=== PATIENT | female | born 1970 | race Caucasian/White ===

== ENCOUNTER 2017-05-12 09:48 | Emergency (ER) | payer BC, SELFPAY | END 2017-05-12 10:57 | disposition home or self-care (01) | PROVIDERS: Emergency Provider Nurse Practitioner; Family Provider Family Medicine; Visit Provider Nurse Practitioner | DX: J09.X2 Influenza due to identified novel influenza A virus with other respiratory manifestations (principal) | CPT/HCPCS: 87804; 87880; 99201 ==

== ENCOUNTER → 2018-07-08 15:18 | Outpatient (CLI) | payer BC, SELFPAY ==
--- NOTE | 2018-07-08 15:45 | XR_ITS ---
XR clavicle RT HISTORY: ITS.REASON: RT STERNOCLAVICULAR PAIN ORDERING PHYSICIAN: Buddy Grayson MD PATIENT AGE: 47 years COMPARISON: None FINDINGS: No fracture or dislocation. No lytic or blastic change. There is normal mineralization.. The joint spaces are well-preserved. No significant degenerative/arthritic changes. No erosive changes evident. The sternoclavicular joint is not well demonstrated on the regular clavicular films.. CT of the sternoclavicular joint may be of further value if clinically warranted. IMPRESSION: Negative, no acute finding
== END ==
PROVIDERS: PCP Family Medicine; Visit Provider Family Medicine
DX: M25.511 Pain in right shoulder (principal)
CPT/HCPCS: 73000

== ENCOUNTER → 2018-07-30 14:52 | Outpatient (CLI) | payer BC, SELFPAY ==
--- NOTE | 2018-07-30 14:57 | XR_ITS ---
XR AC joint RT CLINICAL INDICATION: ITS.REASON: AC joint pain ORDERING PHYSICIAN: Alla Davis MD PATIENT AGE: 47 years Comparison: 07/08/2018 FINDINGS: A Zanca view of the right shoulder performed. The acromioclavicular joint has an unremarkable appearance. No subacromial stenosis or other significant anomalies. IMPRESSION: Negative right AC joint
--- NOTE | 2018-07-30 14:57 | XR_ITS ---
XR sternoclavicular joint BI CLINICAL INDICATION: ITS.REASON: SC joint pain ORDERING PHYSICIAN: Alla Davis MD PATIENT AGE: 47 years Comparison: None FINDINGS: AP view is obtained of the sternoclavicular joints. The medial head of the right clavicle is slightly higher than the left side however the patient does appear slightly tilted which may contribute to this finding. No fracture apparent. The medial aspect of both clavicles have an unremarkable appearance. IMPRESSION: There may be some minimal superior subluxation of the medial head of the right clavicle. Consider CT for confirmation
== END ==
PROVIDERS: PCP Family Medicine; Visit Provider Orthopaedic Surgery
DX: M25.511 Pain in right shoulder (principal)
CPT/HCPCS: 71130; 73050

== ENCOUNTER → 2018-08-27 07:50 | Outpatient (CLI) | payer BC, SELFPAY ==
[2018-08-27 09:43] LABS: Alanine Aminotransferase 28 U/L (12-78); Albumin Level 3.5 gm/dL (3.4-5.0); Albumin/Globulin Ratio 1.1 (1.1-1.8); Alkaline Phosphatase 74 U/L (46-116); Anion Gap 13.1 mEq/L (5-15); Aspartate Amino Transferase 16 U/L (15-37); Bilirubin,Total 0.3 mg/dL (0.2-1.0); Blood Urea Nitrogen 17 mg/dL (7-18); Calcium 9.3 mg/dL (8.5-10.1); Carbon Dioxide 27 mmol/L (21.0-32.0); Chloride 106 mmol/L (98-107); Chol/HDL Ratio 3.3 (1-3.5); Cholesterol 229 mg/dL (140-200); Creatinine,Serum 1.06 mg/dL (0.55-1.02); Estimated Glomerular Filt Rate 55 ml/min (>60); GFR (African American) 67 ML/MIN (>60); Globulin 3.1 gm/dl (1.3-3.2); Glucose 75 mg/dL (74-106); HDL Cholesterol 69 mg/dL (29-89); LDL Cholesterol 126 mg/dL (0-130); Potassium 4.1 mmoL/L (3.5-5.1); Sodium 142 mmol/L (136-145); Total Protein,Serum 6.6 gm/dL (6.4-8.2); Triglycerides 169 mg/dL (30-200); Uric Acid 7.6 mg/dL (2.6-7.2); VLDL Cholesterol 34 mg/dL (0-40)
== END ==
PROVIDERS: Visit Provider Family Medicine
DX: I10 Essential (primary) hypertension (principal); E78.5 Hyperlipidemia, unspecified; E79.0 Hyperuricemia without signs of inflammatory arthritis and tophaceous disease
CPT/HCPCS: 36415; 80053; 80061; 84550

== ENCOUNTER 2018-09-03 08:00 | Outpatient (RCR) | payer BC, SELFPAY ==
--- NOTE | 2018-08-02 08:53 | HMH.OTOPEV ---
OT Inpatient Evaluation Rehab OT Outpatient Eval Start: 08/02/18 08:39 Freq: Status: Active Protocol: Document 08/02/18 08:39 RMARSHALL (Rec: 08/02/18 08:53 [facility] [id number] Electronically Signed By Elizabeth Hendrix OT 08/02/18 08:39 Outpatient Therapy Subjective History Subjective History Pt is a 47 year old female seen by OT for initial evaluation to Right shoulder and SC joint. Pt began having pain and swelling in her right SC joint in June, after beginning an exercises program with her upper body. Pt reports her pain refers acrost her clavicle into the AC joint. Pt does demonstrate with slight decreased AROM and strength at right shoulder. Pt will continue to be seen twice a week in order to address these deficits. Chief Complaint Pain Swelling Weakness Symptom Type Ache Dull Symptoms Relieved By Nothing Symptoms Aggravated By Physical Activity Lifting Prior Functional Limitations None Current Functional Limitations Reaching Lifting Housework Sleeping Recreation Activity Symptom Description Intermittent Activity Dependent Level of pain today (0-10) 0 Pain scale - at its best (0-10) 0 Pain scale - at its worst (0-10) 4 Shoulder/Elbow Eval Shoulder Objective Measurements Shoulder ROM Right Shoulder ROM Limitations Muscle Weakness Shoulder Abduction Active Range of 134 degrees Motion (degrees) Shoulder Flexion Active Range of Motion 125 degrees (degrees) Query Text: Shoulder External Rotation Active Range 85 degrees of Motion (degrees) Shoulder Internal Rotation Active Range 75 degrees of Motion (degrees) pain with active ROM shoulder exam right standard decreased ROM shoulder exam standard right Shoulder MMT Shoulder Abduction Strength Grade 4 Good Shoulder Extension Strength Grade 4 Good Shoulder Flexion Strength Grade 4 Good Shoulder External Rotation Strength 4 Good Grade
--- NOTE | 2018-09-03 08:49 | HMH.RHREAS ---
Rehab Reassessment Rehab OP Re-assessment Start: 09/03/18 08:27 Freq: Status: Active Protocol: Document 09/03/18 08:27 CALE (Rec: 09/03/18 08:48 RMNORAHALL [id number]) Electronically Signed By Elizabeth Hendrix OT 09/03/18 08:27 Rehab Re-assessment Subjective Subjective I'm still having aching pain. Objective Objective Notes Pt continues to be seen twice a week in order to engage in skilled OT services. Pt engages in Right shoulder AROM /AAROM/Strengthening exercises . Pt completes the following exercises. Pt also receives modalities such as e-stim, ionto, and ice to decrease pain/inflammation. UE Ergo: 5 minutes forward and 5 minutes backward Pulleys A/F: [address] Wand A/F: 10 reps, 1 set ABC's on Wall: 1 set [place] GTB: 20 reps, 1 set Flexion GTB: 20 reps, 1 set Shoulder Matrix: 10 reps, 1 set 1# AIG A/F: 15 reps, 1 set A's, T's, Y's: 10 reps, 1 set 1# Prone Row: 20 reps, 1 set 5# Serratus Punch: 20 reps, 1 set 5# Assessment Progress Assessment Slower Than Expected Assessment Notes Pt has progressed since beginning therapy. However, pt does still have consistent aching pain in the A/C joint referring to [facility] S/C joint. Pt explains her pain is the worst at night. Pt also complains of grinding during movements in the A/C joint. Pt's AROM and strength has improved since initial evaluation. AROM Current Right shoulder Flex: 155 degrees Abd: 150 degrees ER: 85 degrees IR: 82 degrees Current MMT Right shoulder F
== END 2018-09-03 08:05 | disposition home or self-care (01) ==
LOC: OT 08:00
PROVIDERS: Visit Provider Orthopaedic Surgery
DX: M25.511 Pain in right shoulder (principal)
CPT/HCPCS: 97014; 97033; 97110; 97164; 97165; G0283

== ENCOUNTER → 2018-09-18 07:41 | Outpatient (CLI) | payer BC, SELFPAY ==
--- NOTE | 2018-09-18 07:43 | MR_ITS ---
MR shoulder RT wo con COMPARISON: 07/30/2018 HISTORY: Right shoulder pain with popping in right knee, limited range of motion ORDERING PHYSICIAN: Alla Davis MD PATIENT AGE: 47 years TECHNIQUE: Routine multiplanar multiecho sequences are performed without contrast. FINDINGS: There are hypertrophic changes of the acromioclavicular joint. No significant subacromial stenosis evident. No evidence of rotator cuff tear. There is slight increased T2 signal of the distal aspect of the supraspinatus tendon suggesting tendinopathy/tendinosis with some minimal irregularity along the superior surface of the supraspinatus tendon posteriorly. A partial tear is not excluded. The infraspinatus, subscapularis, and teres minor tendons are intact. The bicipital tendon to the long head of the biceps is in place. No obvious labral tear. There is a small subchondral cyst involving the humeral head laterally and posteriorly. IMPRESSION: 1. Mild tendinopathy/tendinosis of the supraspinatus tendon with some irregularity of the superior surface of the tendon distally and posteriorly which could be due to partial tear 2. Hypertrophic changes of the acromioclavicular joint without significant impingement. 3. No evidence of a complete or full-thickness rotator cuff tear
== END ==
PROVIDERS: PCP Family Medicine; Visit Provider Orthopaedic Surgery
DX: M19.011 Primary osteoarthritis, right shoulder (principal)
CPT/HCPCS: 73221

== ENCOUNTER → 2018-09-24 08:08 | Outpatient (CLI) | payer BC, SELFPAY ==
--- NOTE | 2018-09-24 08:14 | MM_ITS ---
MM Dig screening mamm BI w/CAD CAD Screening COMPARISON: Digital mammograms with CAD 06/02/2016 and 05/24/2015 INDICATION: There is no personal or family history of breast cancer TECHNIQUE: Standard CC and MLO images were obtained. R2 CAD reviewed. FINDINGS: Moderate diffuse fibroglandular densities are seen in both breasts. There are couple benign-appearing microcalcifications right breast. There is no suspicious lesion and there are no suspicious microcalcifications. IMPRESSION: Stable exam with no suspicious lesion seen BI-RADS Category: 2 Benign Finding(s) RECOMMENDED FOLLOW-UP: 1YR - 1 YEAR FOLLOW-UP (A letter has been sent to the patient regarding results of the study.)
== END ==
PROVIDERS: PCP Family Medicine; Visit Provider Family Medicine
DX: Z12.31 Encounter for screening mammogram for malignant neoplasm of breast (principal)
CPT/HCPCS: 77067

== ENCOUNTER 2018-11-28 08:00 | Outpatient (RCR) | payer BC, SELFPAY ==
--- NOTE | 2018-10-22 08:26 | HMH.OTOPEV ---
OT Inpatient Evaluation Rehab OT Outpatient Eval Start: 10/22/18 08:11 Freq: Status: Active Protocol: Document 10/22/18 08:11 RMARSSHADI (Rec: 10/22/18 08:26 RMARSSHADI [id number]) Electronically Signed By Elizabeth Hendrix OT 10/22/18 08:11 Outpatient Therapy Subjective History Subjective History Pt is a 47 year old female who reports to therapy for initial evaluation to right shoulder. Pt was seen previously by therapy earlier in the year. Pt began having pain at the right shoulder and S/C joint in June,. Pt's pain in S/C joint has resolved, but her pain at right should has continued. Pt did have an injection at the shoulder recently when she saw ortho. Pt continues to demonstrate decreased AROM and strength at right shoulder. Pt will continue to be seen twice a week in order to address all deficits. Chief Complaint Pain,Weakness Symptom Type Ache,Throb,Sharp,Dull Symptoms Relieved By Rest/Positioning Symptoms Aggravated By Physical Activity,Twisting, Lifting Prior Functional Limitations None Current Functional Limitations Reaching,Lifting,Housework, Recreation Activity Symptom Description Intermittent,Pain at Rest Level of pain today (0-10) 1 Pain scale - at its best (0-10) 0 Pain scale - at its worst (0-10) 5 Shoulder/Elbow Eval Shoulder Objective Measurements Shoulder ROM Right Shoulder ROM Limitations Pain Shoulder Abduction Active Range of 140 degrees Motion (degrees) Shoulder Flexion Active Range of Motion 132 degrees (degrees) Query Text: Shoulder External Rotation Active Range 70 degrees of Motion (degrees) Shoulder Internal Rotation Active Range 55 degrees of Motion (degrees) pain with active ROM shoulder exam right standard pain with passive ROM shoulder exam right standard decreased ROM shoulder exam standard right full ROM shoulder exam standard left Shoulder MMT Shoulder Abduction Strength Grade 4- Good- Shoulder Extension Strength Grade 4- Good- Shoulder Flexion Strength Grade 4- Good- Shoulder External Rotation Strength 4- Good- Grade
== END 2018-11-28 08:05 | disposition home or self-care (01) ==
LOC: OT 08:00
PROVIDERS: Visit Provider Orthopaedic Surgery
DX: M19.011 Primary osteoarthritis, right shoulder (principal); M25.511 Pain in right shoulder; M67.911 Unspecified disorder of synovium and tendon, right shoulder
CPT/HCPCS: 97014; 97035; 97110; 97140; 97165; G0283

== ENCOUNTER → 2018-12-16 10:40 | Outpatient (CLI) | payer BC, SELFPAY ==
[2018-12-16 11:04] LABS: Basophils # 0.1 K/mm3 (0-0.2); Basophils % 0.8 % (0.1-2.0); Eosinophils # 0.5 K/mm3 (0.0-0.4); Eosinophils % 8.1 % (0.1-12.0); Hematocrit 42.1 % (37.0-47.0); Hemoglobin 13.4 g/dL (12.2-16.2); Lymphocytes % 31.4 % (10-50); Mean Corpuscular HGB Conc 31.7 g/dL (31.8-35.4); Mean Corpuscular Hemoglobin 29.6 pg (27.0-31.2); Mean Corpuscular Volume 93.5 fl (81-99); Mean Platelet Volume 6.9 fl (7.4-10.4); Monocytes # 0.3 K/mm3 (0.1-1.0); Monocytes % 4.3 % (1.7-9.3); Neutrophils # 3.6 K/mm3 (1.8-7.8); Neutrophils % 55.4 % (37.0-80.0); Platelet Count 283 K/mm3 (142-424); Red Blood Count 4.51 M/mm3 (4.20-5.40); Red Cell Distribution Width 12.6 % (11.5-17.5); White Blood Count 6.4 K/mm3 (4.8-10.8)
[2018-12-16 12:35] LABS: Alanine Aminotransferase 28 U/L (12-78); Albumin Level 3.6 gm/dL (3.4-5.0); Alkaline Phosphatase 84 U/L (46-116); Anion Gap 15.3 mEq/L (5-15); Aspartate Amino Transferase 27 U/L (15-37); Bilirubin,Total 0.2 mg/dL (0.2-1.0); Blood Urea Nitrogen 14 mg/dL (7-18); Calcium 9.8 mg/dL (8.5-10.1); Carbon Dioxide 25 mmol/L (21.0-32.0); Chloride 103 mmol/L (98-107); Creatinine,Serum 0.94 mg/dL (0.55-1.02); Estimated Glomerular Filt Rate 63 ml/min (>60); GFR (African American) 76 ML/MIN (>60); Globulin 3.5 gm/dl (1.3-3.2); Glucose 79 mg/dL (74-106); Potassium 4.3 mmoL/L (3.5-5.1); Sodium 139 mmol/L (136-145); Total Protein,Serum 7.1 gm/dL (6.4-8.2)
== END ==
PROVIDERS: Visit Provider Orthopaedic Surgery
DX: M67.919 Unspecified disorder of synovium and tendon, unspecified shoulder (principal); M19.019 Primary osteoarthritis, unspecified shoulder
CPT/HCPCS: 36415; 80053; 85025; 93005

== ENCOUNTER → 2019-02-18 08:07 | Outpatient (POV) | payer BC, SELFPAY | PROVIDERS: Visit Provider Dermatology | DX: Z00.00 Encounter for general adult medical examination without abnormal findings (principal) ==

== ENCOUNTER → 2019-03-03 08:42 | Outpatient (CLI) | payer BC, SELFPAY ==
--- NOTE | 2019-03-03 08:46 | XR_ITS ---
PROCEDURE: XR SHOULDER RT 1V CLINICAL INDICATION: Rt shoulder FU Shoulder pain, follow-up surgery COMPARISON: ACJRT XR AC joint RT from 07/30/2018 FINDINGS: Status post osteotomy of the acromioclavicular joint. Good alignment. Unremarkable glenohumeral joint. IMPRESSION: Interval osteotomy of the acromioclavicular joint otherwise negative Dictated by: Carlos Mistry MD 03/03/2019 09:37 Electronically signed by Carlos Mistry MD in [place] 03/03/2019 09:37
== END ==
PROVIDERS: PCP Family Medicine; Visit Provider Orthopaedic Surgery
DX: M67.911 Unspecified disorder of synovium and tendon, right shoulder (principal)
CPT/HCPCS: 73020

== ENCOUNTER 2019-03-19 15:00 | Outpatient (RCR) | payer BC, SELFPAY ==
--- NOTE | 2019-01-14 14:49 | HMH.OTOPEV ---
OT Inpatient Evaluation Rehab OT Outpatient Eval Start: 01/14/19 14:40 Freq: Status: Active Protocol: Document 01/14/19 14:40 RMARSHALL (Rec: 01/14/19 14:49 [facility] [id number]) Electronically Signed By Elizabeth Hendrix OT 01/14/19 14:40 Outpatient Therapy Subjective History Subjective History Pt is a 48 year old female who reports to therapy for initial evalution to right shoulder. Pt is s/p SAD, DCE, and Biceps Tenodesis on . Therapist is to follow bicep tenodesis protocol per doctors orders. Pt will continue to be seen twice a week in order to address all deficits. Chief Complaint Pain,Stiff Symptom Type Ache,Throb,Sharp,Dull,Stabbing Symptoms Relieved By Nothing Symptoms Aggravated By Physical Activity,Twisting, Lifting Prior Functional Limitations None Current Functional Limitations Reaching,Lifting,Housework, Dressing,Driving,Recreation Activity Symptom Description Intermittent,Activity Dependent Level of pain today (0-10) 0 Pain scale - at its best (0-10) 0 Pain scale - at its worst (0-10) 9 Shoulder/Elbow Eval Shoulder Objective Measurements Shoulder ROM Right Shoulder Abduction Passive Range of 80 degrees Motion (degrees) Shoulder Flexion Passive Range of Motion 90 degrees (degrees) Shoulder External Rotation Passive Range 0 degrees of Motion (degrees) Shoulder Internal Rotation Passive Range 30 degrees of Motion (degrees) pain with active ROM shoulder exam right standard pain with passive ROM shoulder exam right standard decreased ROM shoulder exam standard right Shoulder MMT Shoulder Abduction Strength Grade 3 Fair Shoulder Extension Strength Grade 3 Fair Shoulder Flexion Strength Grade 3 Fair Shoulder External Rotation Strength 3 Fair Grade Shoulder Internal Rotation Strength 3 Fair Grade Shoulder Strength Patient Testing Sitting Position Elbow Objective Measurements OT Outpatient Assessment Impairments Problems/Impairments Palpation Tenderness,Impaired Range of Motion,Impaired Strength,Impaired Endurance, Impaired Lifting,Impaired
--- NOTE | 2019-02-13 13:02 | HMH.RHREAS ---
Rehab Reassessment Rehab OP Re-assessment Start: 02/13/19 10:52 Freq: Status: Active Protocol: Document 02/13/19 10:53 CALE (Rec: 02/13/19 11:35 CALE [id number]) Electronically Signed By Elizabeth Hendrix OT 02/13/19 10:53 Rehab Re-assessment Subjective Subjective I'm still having pain. Objective Objective Notes Pt continues to be seen twice a week. Each session pt engages in AROM/AAROM exercises. Strengthening exercises have not been initiated. Pt also receives PROM manual stretching to right shoulder in flexion, abduction, ER, and IR in supine. Pt does receive modalities in order to improve pain/inflammation (e-stim). Assessment Progress Assessment Progressing as Expected Assessment Notes Pt is progressing and improving in PROM and AROM at right shoulder. Pt's pain continues to be consistent during therapy session and every day activities. Pt rates her pain at a 5/10 during use of R UE. Current AROM R shoulder Flex: 112 degrees Abd: 125 degrees ER: 60 degrees IR: 45 degrees Patient goals met N/A Goals Not Met LTG and STG written on initial evaluation Revised Goals Continue working towards STG and LTG written on initial evaluation. Plan Plan Continue with OT plan of care at this time. Frequency of Therapy 2x's a week Duration of therapy 6 more weeks Time and Billing Re-Eval Time 15 Re-Eval Billing Units 1 PHYSICIAN CERTIFICATION: I certify the specified therapy services for Pratibha Bonilla are required, authorized, and reviewed every 30 days.
== END 2019-03-19 15:05 | disposition home or self-care (01) ==
LOC: OT 15:00
PROVIDERS: PCP Family Medicine; Visit Provider Orthopaedic Surgery
DX: M19.011 Primary osteoarthritis, right shoulder (principal); M67.911 Unspecified disorder of synovium and tendon, right shoulder
CPT/HCPCS: 97014; 97110; 97140; 97164; 97166; G0283

== ENCOUNTER → 2019-03-20 07:16 | Outpatient (CLI) | payer BC, SELFPAY ==
--- NOTE | 2019-03-20 07:20 | XR_ITS ---
PROCEDURE: XR SHOULDER RT MIN 2V CLINICAL INDICATION: Shoulder pain Right shoulder pain and swelling COMPARISON: SHOULDRTWO MR shoulder RT wo con from 09/18/2018 XR SHOULDER RT 1V from 03/03/2019 FINDINGS: Status post osteotomy at the acromioclavicular joint. The glenohumeral joint has an unremarkable appearance. No fracture or dislocation. IMPRESSION: Status post osteotomy AC joint otherwise negative Dictated by: Carlos Mistry MD 03/20/2019 15:47 Electronically signed by Carlos Mistry MD in [place] 03/20/2019 15:47
== END ==
PROVIDERS: PCP Family Medicine; Visit Provider Orthopaedic Surgery
DX: M19.011 Primary osteoarthritis, right shoulder (principal); M67.911 Unspecified disorder of synovium and tendon, right shoulder; M75.21 Bicipital tendinitis, right shoulder
CPT/HCPCS: 73030

== ENCOUNTER → 2019-03-27 12:59 | Outpatient (CLI) | payer BC, SELFPAY ==
--- NOTE | 2019-03-27 13:05 | FL_ITS ---
PROCEDURE: FL GUIDED ASPIRATION JOINT CLINICAL INDICATION: shoulder pain COMPARISON: No exams were available for comparison FINDINGS: Fluoroscopy time: 22 seconds Images submitted show contrast injected into the right sternoclavicular joint. IMPRESSION: Fluoro guidance of right sternoclavicular joint injection. Dictated by: Carlos Mistry MD 03/27/2019 17:43 Electronically signed by Carlos Mistry MD in [place] 03/27/2019 17:43
--- NOTE | 2019-03-27 22:17 | HMH.PROC ---
[facility] Procedure Note Procedure Note:: Date of Procedure: March 27, 2019 Pre-procedure diagnosis: R sternoclavicular joint arthrosis Post-procedure diagnosis: R sternoclavicular joint arthrosis Procedure: intraarticular corticosteroid injection R sternoclavicular joint Performed by: Alla Davis MD Die Cast Supervisor/s: none Anesthesia: local; 2cc 1% lidocaine w/o epinephrine Estimated Blood Loss: none History of Present Illness: 48yo F with a history of pain/arthrosis R sternoclavicular joint that failed CSI in the office. She was also seen to have subacromial stenosis, AC joint arthrosis and biceps tendinopathy, so the shoulder was treated arthroscopically on 12/31/2018: she underwent subacromial decompression, distal clavicle excision, biceps tenodesis, and debridement of partial thickness RTC tear. She initially did well with physical therapy, but has recently experienced a significant increase in pain over the SC joint with soft tissue swelling. It is limiting her ability to work and to use the arm. We discussed SC joint resection, but prior to considering this I recommend repeat injection, but under fluoroscopic guidance. After discussion of the risks, including bleeding, infection and persistent pain, the patient agreed to proceed with the injection and provided informed consent. Procedure Note: The patient presented to the radiology department and changed into a gown and placed supine on the fluoro table, exposing the R shoulder girdle. Consent was reviewed and signed by both myself and the patient, all questions were answered. The sternoclavicular joint was prepped with chlorhexidine. Timeout was performed. Next, the fluoro machine was brought in over the patient?s R shoulder and a picture taken to confirm adequate visualization of the SC joint. I donned a pair of sterile surgical gloves; the remainder of the procedure was performed in a sterile fashion. A 25G needle was used to anesthetize the injection site over the SC joint with 2cc 1% lidocaine w/o epinephrine. Once the injection site was anesthetized, a 20G needle was advanced through the same puncture site and into the SC joint under fluroscopic guidance. Once the needle was in the SC joint, 1cc of iodinated contrast solution was injected and used to confirm intra-articular placement of the needle. The needle was left in place and 40mg Kenalog with 1cc 1% lidocaine w/o epinephrine was injected through the needle into the SC joint. A final fluoro picture was taken, confirming successful intraarticular injection. The spinal needle was removed from the SC joint and a band-aid placed over the injection site. Specimens: none Condition/Disposition: good / home Complications: none
--- NOTE | 2019-03-27 22:27 | P.PCN_ITS ---
[facility] Procedure Note Procedure Note:: Date of Procedure: March 27, 2019 Pre-procedure diagnosis: R sternoclavicular joint arthrosis Post-procedure diagnosis: R sternoclavicular joint arthrosis Procedure: intraarticular corticosteroid injection R sternoclavicular joint Performed by: Alla Davis MD Toys Inspector/s: none Anesthesia: local; 2cc 1% lidocaine w/o epinephrine Estimated Blood Loss: none History of Present Illness: 48yo F with a history of pain/arthrosis R sternoclavicular joint that failed CSI in the office. She was also seen to have subacromial stenosis, AC joint arthrosis and biceps tendinopathy, so the shoulder was treated arthroscopically on 12/31/2018: she underwent subacromial decompression, distal clavicle excision, biceps tenodesis, and debridement of partial thickness RTC tear. She initially did well with physical therapy, but has recently experienced a significant increase in pain over the SC joint with soft tissue swelling. It is limiting her ability to work and to use the arm. We discussed SC joint resection, but prior to considering this I recommend repeat injection, but under fluoroscopic vinnie nce. After discussion of the risks, including bleeding, infection and persistent pain, the patient agreed to proceed with the injection and provided informed consent. Procedure Note: The patient presented to the radiology department and changed into a gown and placed supine on the fluoro table, exposing the R shoulder girdle. Consent was reviewed and signed by both myself and the patient, all questions were answered. The sternoclavicular joint was prepped with chlorhexidine. Timeout was performed. Next, the fluoro machine was brought in over the patient?s R shoulder and a picture taken to confirm adequate visualization of the SC joint. I donned a pair of sterile surgical gloves; the remainder of the procedure was performed in a sterile fashion. A 25G needle was used to anesthetize the injection site over the SC joint with 2cc 1% lidocaine w/o epinephrine. Once the injection site was anesthetized, a 20G needle was advanced through the same puncture site and into the SC joint under fluroscopic guidance. Once the needle was in the SC joint, 1cc of iodinated contrast solution was injected and used to confirm intra-articular placement of the needle. The needle was left in place and 40mg Kenalog with 1cc 1% lidocaine w/o epinephrine was injected through the needle into the SC joint. A final fluoro picture was taken, confirming successful intraarticular injection. The spinal needle was removed from the SC joint and a band-aid placed over the injection site. Specimens: none Condition/Disposition: good / home Complications: none
== END ==
PROVIDERS: PCP Family Medicine; Visit Provider Orthopaedic Surgery
DX: M67.919 Unspecified disorder of synovium and tendon, unspecified shoulder (principal)
CPT/HCPCS: 20610; 77002

== ENCOUNTER → 2019-05-20 15:46 | Outpatient (POV) | payer BC, SELFPAY | PROVIDERS: Visit Provider Dermatology | DX: Z00.00 Encounter for general adult medical examination without abnormal findings (principal) ==

== ENCOUNTER → 2019-07-02 10:14 | Outpatient (CLI) | payer BC, SELFPAY | PROVIDERS: PCP Physician Assistant; Visit Provider Physician Assistant | DX: R42 Dizziness and giddiness (principal) | CPT/HCPCS: 93225; 93226 ==

== ENCOUNTER → 2019-07-16 10:21 | Outpatient (CLI) | payer BC, SELFPAY | PROVIDERS: PCP Family Medicine; Visit Provider Urology | DX: R00.2 Palpitations (principal); E78.5 Hyperlipidemia, unspecified; I10 Essential (primary) hypertension | CPT/HCPCS: 93270 ==

== ENCOUNTER → 2019-07-22 07:52 | Outpatient (CLI) | payer BC, SELFPAY | PROVIDERS: PCP Family Medicine; Visit Provider Urology | DX: R00.2 Palpitations (principal); E78.5 Hyperlipidemia, unspecified; I10 Essential (primary) hypertension | CPT/HCPCS: 93306 ==

== ENCOUNTER → 2019-08-07 06:15 | Outpatient (CLI) | payer BC, SELFPAY ==
--- NOTE | 2019-08-07 06:15 | NM_ITS ---
APPROVED REPORT Exam: Nuclear Stress Test Indication: palpitations..fatigue Patient Location: Outpatient Stress Tech: Emma Goncalves PA Tech:Jennifer Varghese SHIREENTorri RT(R)(N) Ht: 5 ft 6 in Wt: 170 lbs Bra Size: 38 DD HR: 44 bpm BP: 153/89 mmHg BSA: 1.87 m2 BMI: 27.4 History: palpitations..fatigue Procedure: Patient exercised on Didier protocol 7.44 minutes and sec, resting heart rate 44 bpm, resting blood pressure 153/89 mmHg, with exercise maximum heart rate achived was 155 bpm which is Greater than 85 % of the maximum predicted heart rate and blood pressure was 168/80 mmHg. Patient denied any complaint of chest pain. Patient has Good exercise capacity, achieved 10.1 METs of workload on treadmill, the blood pressure response to exercise was Adequate. Electrocardiogram Resting electrocardiogram showed sinus rhythm, with exercise there is less than 1.[address] segment depression noted from the baseline EKG. The EKG portion of the exercise Myoview is negative for ischemia. Cardiac Stress and Resting SPECT Images: Cardiac Stress and Resting SPECT images were obtained using technetium 99m Myoview 31.8 mCi stress and 10.51 mCi at rest. Gated SPECT with analysis of segmental wall motion and calculation of the ejection fraction also done. Cardiac stress and resting SPECT images show uniform myocardial activity without segmental perfusion abnormality, computer derived ejection fraction is 53% with no regional wall motion abnormality, right ventricle is normal size and contractility. Conclusion: 1. The EKG portion of the exercise Myoview is negative for ischemia. Patient has good exercise capacity achieved 10.1 mets of workload on treadmill, the blood pressure response to exercise was adequate, there was no exercise-induced chest discomfort. 2. No scintigraphic evidence of reversible ischemia seen, computer derived ejection fraction is 53% with no regional wall motion abnormality, right ventricle is normal size and contractility. 3. Normal exercise Myoview study. Electronically signed by : Taz Vdies, 08/07/2019 15:25:25
--- NOTE | 2019-08-07 10:28 | HMH.ITSHM ---
Current Home Medications as stated by this patient Pratibha Bonilla or labor service representative. [] simvastatin paroxetine pantoprazole oxazepam bisoprolol allopuerinal
--- NOTE | 2019-08-07 11:24 | CA_ITS ---
APPROVED REPORT Exam: Exercise Treadmill Technologist: Emma Goncalves, Ht: 5 ft 6 in Wt: 170 lbs BSA: 1.87 m2 Indications: Palp, Fatigue Medical History Medical History: HTN, Hyperlipidemia Medications: Simvastatin,,,,, Allopurinol,,,,, Oxazepam,,,,, Pantoprazole,,,,, PaROXETINE,,,,, BisOPROLOL,,,,, Cardiac Risk Factors: HTN, , Hyperlipidemia, FHX of CAD Stress Test Details Test: Didier HR Resting HR: 53 bpm Max Heart Rate (APMHR): 170 bpm Max HR Achieved: 155 bpm Target HR (85% APMHR): 144 bpm % of APMHR: 91 BP Resting BP: 153/89 mmHg Max BP: 168/80 mmHg ECG Clinical Exercise duration: 07:46 min Highest Stage Achieved: Exercise capacity: 10.1 METs Stress ECG Conclusion Symptoms: No CP, occ. isolated PVC, Allowing for motion artifact the ST response to exercise is normal. Normal GXT, Myoview images reported Sep. Test Summary REST . . . . . . . Standing REST . . . . . . . Sitting REST 09:59 0.0 0.0 53 . 153/ 89 . . Stage 1 01:00 10.0 1.7 78 . . . . Stage 1 02:00 10.0 1.7 80 . . . . Stage 1 03:00 10.0 1.7 95 . 168/ 80 . . Stage 2 01:00 12.0 2.5 113 . . . . Stage 2 02:00 12.0 2.5 121 . . . . Stage 2 03:00 12.0 2.5 128 . 165/ 75 . . Stage 3 . . . . . . . Cardiolite injected Stage 3 01:00 14.0 3.4 136 . . . . Stage 3 01:46 14.0 3.4 142 . . . Stop exercise at 07:46 RECOVERY 01:00 0.0 0.0 98 . . . . RECOVERY 02:00 0.0 0.0 69 . . . . RECOVERY 03:00 0.0 0.0 63 . . . . RECOVERY 04:00 0.0 0.0 61 . 138/ 50 . . RECOVERY 05:00 0.0 0.0 64 . 117/ 60 . . RECOVERY 05:17 0.0 0.0 69 . 117/ 60 . . Electronically signed by : Taz Vides, 08/07/2019 15:22:54
== END ==
PROVIDERS: PCP Family Medicine; Visit Provider Nurse Practitioner Family
DX: I47.2 Ventricular tachycardia (principal); R00.1 Bradycardia, unspecified; R00.2 Palpitations; R94.31 Abnormal electrocardiogram [ECG] [EKG]
CPT/HCPCS: 78452; 93017; A9502

== ENCOUNTER → 2019-11-03 08:25 | Outpatient (CLI) | payer BC, SELFPAY ==
[2019-11-03 09:16] LABS: Basophils % 0.7 % (0.1-2.0); Eosinophils # 0.4 K/mm3 (0.0-0.4); Eosinophils % 7.5 % (0.1-12.0); Hematocrit 39.6 % (37.0-47.0); Hemoglobin 13.1 g/dL (12.2-16.2); Lymphocytes # 2.2 K/mm3 (0.7-4.5); Lymphocytes % 41.1 % (10-50); Mean Corpuscular HGB Conc 33.1 g/dL (31.8-35.4); Mean Corpuscular Hemoglobin 30.5 pg (27.0-31.2); Mean Corpuscular Volume 92.4 fl (81-99); Mean Platelet Volume 7.7 fl (7.4-10.4); Monocytes # 0.3 K/mm3 (0.1-1.0); Monocytes % 4.9 % (1.7-9.3); Neutrophils # 2.5 K/mm3 (1.8-7.8); Neutrophils % 45.8 % (37.0-80.0); Platelet Count 212 K/mm3 (142-424); Red Blood Count 4.29 M/mm3 (4.20-5.40); Red Cell Distribution Width 12.6 % (11.5-17.5); White Blood Count 5.5 K/mm3 (4.8-10.8)
[2019-11-03 10:39] LABS: Chloride 105 mmol/L (98-107); Potassium 4.2 mmoL/L (3.5-5.1); Sodium 136 mmol/L (136-145)
[2019-11-03 10:42] LABS: Anion Gap 7.2 mEq/L (5-15); Blood Urea Nitrogen 18 mg/dl (7-17); Carbon Dioxide 28 mmol/L (22.0-30.0); Estimated Glomerular Filt Rate 58 ml/min (>60); GFR (African American) 71 ML/MIN (>60); Glucose 83 mg/dl (74-100)
== END ==
PROVIDERS: Visit Provider Internal Medicine Clinical Cardiac Electrophysiology
DX: Z01.818 Encounter for other preprocedural examination (principal); I47.1 Supraventricular tachycardia
CPT/HCPCS: 36415; 80048; 85025

== ENCOUNTER → 2020-03-24 12:14 | Outpatient (CLI) | payer BC, SELFPAY ==
--- NOTE | 2020-03-24 12:23 | XR_ITS ---
PROCEDURE: XR KNEE RT 3V CLINICAL INDICATION: OSTEOARTHRITIS COMPARISON: No exams were available for comparison FINDINGS: There are mild osteoarthritic changes of the medial compartment and patellofemoral joint. There is a small suprapatellar effusion. Small calcifications are present along the medial compartment and the anterior aspect of the knee joint consistent with small loose bodies. Other findings:None. IMPRESSION: Osteoarthritis with loose bodies and small knee joint effusion Dictated by: Carlos Mistry MD 03/24/2020 14:16 Carlos Mistry MD in [place] 03/24/2020 14:16
== END ==
PROVIDERS: PCP Family Medicine; Visit Provider Family Medicine
DX: M17.11 Unilateral primary osteoarthritis, right knee (principal)
CPT/HCPCS: 73562

== ENCOUNTER → 2020-04-01 08:13 | Outpatient (CLI) | payer BC, SELFPAY ==
--- NOTE | 2020-04-01 08:17 | MM_ITS ---
PROCEDURE: MM DIG SCREENING MAMM BI W/CAD Digital Breast Tomosynthesis Included CLINICAL INDICATION: SCREENING There is no personal or family history of breast cancer. The patient currently is on Premarin and estrogen. COMPARISON: MG DMSB DIG MAMM-SCREEN KASHIF from 05/24/2015 MG DMSB DIG MAMM-SCREEN KASHIF W/CAD from 06/02/2016 MG DIG MAMM-SCREEN KASHIF from 09/24/2018 TECHNIQUE: Standard CC and MLO images and 3D Tomosynthesis was obtained. R2 CAD reviewed. FINDINGS: Moderate diffuse fibroglandular densities are seen throughout both breasts with findings basically stable and unchanged from previous exams. There is a small focus of asymmetric glandular elements central portion right breast best seen on the CC projection and highlighted by CAD containing a couple of calcifications. This is not definitely visualized on the MLO view. However would recommend the patient return for spot compression magnification views of the area marked on the film and ultrasound if this proves to be a true lesion. IMPRESSION: Moderate diffuse heterogenic breast density with possible asymmetric glandular elements and microcalcifications right breast BI-RAD Category: 0 Need Additional Imaging Evaluation FOLLOW-UP: IMM Immediate Follow-up Recommended (A letter has been sent to the patient regarding results of the study.) Dictated by: Dr. Diony Carvajal MD 04/04/2020 10:56 Dr. Diony Carvajal MD in [place] 04/04/2020 10:56
== END ==
PROVIDERS: PCP Family Medicine; Visit Provider Family Medicine
DX: Z12.31 Encounter for screening mammogram for malignant neoplasm of breast (principal)
CPT/HCPCS: 77063; 77067

== ENCOUNTER → 2020-04-07 07:55 | Outpatient (CLI) | payer BC, SELFPAY | PROVIDERS: PCP Family Medicine; Visit Provider Internal Medicine Clinical Cardiac Electrophysiology | DX: I47.1 Supraventricular tachycardia (principal) | CPT/HCPCS: 93225; 93226 ==

== ENCOUNTER → 2020-04-16 14:35 | Outpatient (CLI) | payer BC, SELFPAY ==
--- NOTE | 2020-04-16 14:38 | US_ITS ---
PROCEDURE: MM DIG MAMM DX UNILAT RT CAD Digital Breast Tomosynthesis Included CLINICAL INDICATION: ABN MAMM OF RT BREAST COMPARISON: MG DMSB DIG MAMM-SCREEN KASHIF W/CAD from 06/02/2016 MG DIG MAMM-SCREEN KASHIF from 09/24/2018 MG MM DIG SCREENING MAMM BI W/CAD from 04/01/2020 US US BREAST RT COMPLETE from 04/16/2020 TECHNIQUE: Standard CC and MLO images and 3D Tomosynthesis was obtained. R2 CAD reviewed. FINDINGS: Magnification views of the right breast demonstrates some faint cluster of calcifications in the mid aspect of the right breast associated with a nodular density on the CC view. Calcifications are felt to be probably benign. Ultrasound the right breast does not demonstrate any cystic or solid nodules. IMPRESSION: Probably benign findings, recommend six-month mammographic and sonographic follow-up BI-RAD Category: 3 Probably Benign Finding Short Term Follow-up FOLLOW-UP: 6M 6Month Follow-up (A letter has been sent to the patient regarding results of the study.) Dictated by: Carlos Mistry MD 04/23/2020 18:52 Carlos Mistry MD in [place] 04/23/2020 18:52
== END ==
PROVIDERS: PCP Family Medicine; Visit Provider Family Medicine
DX: R92.8 Other abnormal and inconclusive findings on diagnostic imaging of breast (principal)
CPT/HCPCS: 76641; 77061; 77065; G0279

== ENCOUNTER → 2020-04-19 08:31 | Outpatient (CLI) | payer BC, SELFPAY ==
--- NOTE | 2020-04-19 08:37 | XR_ITS ---
PROCEDURE: XR KNEE RT 4V CLINICAL INDICATION: RT knee pain COMPARISON: CR XR KNEE RT 3V from 03/24/2020 FINDINGS: There are mild tricompartmental osteoarthritic changes. There are 2 loose bodies in the interspinous region each measuring approximately 4 mm. There is a small suprapatellar effusion. No fracture or dislocation. IMPRESSION: No change mild osteoarthritis with loose bodies and small suprapatellar effusion Dictated by: Carlos Mistry MD 04/19/2020 10:07 Carlos Mistry MD in [place] 04/19/2020 10:07
== END ==
PROVIDERS: PCP Family Medicine; Visit Provider Orthopaedic Surgery
DX: M25.561 Pain in right knee (principal)
CPT/HCPCS: 73564

== ENCOUNTER 2020-05-10 08:00 | Outpatient (RCR) | payer BC, SELFPAY ==
--- NOTE | 2020-04-21 08:49 | HMH.PTOPEV ---
PT Outpatient Evaluation Rehab PT Outpatient Evaluation Start: 04/21/20 08:20 Freq: Status: Active Protocol: Document 04/21/20 08:21 ANJEL (Rec: 04/21/20 08:49 GILBERTORIOS [id number]) Electronically Signed By Dez Ramos PT 04/21/20 08:21 Outpatient Therapy Subjective History Subjective History This is the initial Physical Therapy evaluation for Pratibha Bonilla. Pt is a 49 y/o female referred to PT for c/o R knee pain. Pt reports a few months ago her R knee began swelling through out the day and she started having pain. Pt reports the pain is localized in the ylois-patellar area, but swelling is through out the knee joint. Pt reports she has begun to have swelling in the popliteal space. Pt reports pain increases as the day goes on, and pain increases with ascending stairs. Pt reports no trauma to knee prior to symptoms. Chief Complaint Pain,Swelling Symptom Type Throb,Sharp Symptoms Relieved By Rest/Positioning,Heat,OTC Meds Symptoms Aggravated By Bending/Stooping,Physical Activity,Walking Prior Functional Limitations None Current Functional Limitations Housework,Driving,Squatting, Recreation Activity,Walking, Stairs Symptom Description Intermittent Level of pain today (0-10) 0 Pain scale - at its best (0-10) 0 Pain scale - at its worst (0-10) 5 Hip/Knee Eval Gait Observation General Gait Pattern Observation Antalgic Gait Assistive Device Assistive Devices None / NA Palpation Tenderness right Knee Palpation Finding Tenderness Knee Palpation Overall Comment TTP Lat posterior side of patella MMT Hip Flexion Strength Grade 4 Good Hip Abduction Strength Grade 4 Good Hip Adduction Strength Grade 4 Good Hip Extension Strength Grade 4 Good Hip External Rotation Strength Grade 4- Good- Hip Internal Rotation Strength Grade 4- Good- Knee Extension Strength Grade 4 Good Knee Flexion Strength Grade 4- Good- ROM Hip ROM Reason Not Measured Within Functional Limits Knee ROM Reason Not Measured Within Functional Limits Special Tests Knee Apprehension Test
== END 2020-05-10 08:05 | disposition home or self-care (01) ==
LOC: PT 08:00
PROVIDERS: PCP Family Medicine; Visit Provider Orthopaedic Surgery
DX: M22.2X1 Patellofemoral disorders, right knee (principal)
CPT/HCPCS: 97110; 97163

== ENCOUNTER 2020-05-17 19:32 | Emergency (ER) | payer BC, SELFPAY ==
[2020-05-17 19:41] VITALS: BP 170/76; PULSE 76; RESP 19; TEMP 36.2; O2SAT 98; BMI 27.8
--- NOTE | 2020-05-17 19:45 | ECG_ITS ---
APPROVED REPORT Exam: Resting ECG HR:69 bpm ECG Measurements Heart Rate 69 AXES NH 188 P 60 QRSd 84 QRS 24 QT 386 T 64 QTc 413 Conclusion Normal sinus rhythm Normal ECG Electronically signed by : Bob Berkowitz, 05/18/2020 06:59:35
--- NOTE | 2020-05-17 19:47 | CT_ITS ---
PROCEDURE: CT HEAD/BRAIN WO CON CLINICAL INDICATION: headache Severe headache COMPARISON: No exams were available for comparison TECHNIQUE: Axial images obtained. All CT scans at the facility use one or more dose reduction, viz: automated exposure control, ma/kV adjustment per patient size (including targeted exams where dose is matched to indication, i.e. head), or iterative reconstruction technique. FINDINGS: No midline shift, mass effect, intracranial hemorrhage, hydrocephalus, or extra-axial fluid collection is evident. The calvarium has an unremarkable appearance. No mastoid effusion. No sinus air-fluid level. IMPRESSION: No acute intracranial finding Dictated by: Carlos Mistry MD 05/18/2020 07:33 Carlos Mistry MD in [place] 05/18/2020 07:33
--- NOTE | 2020-05-17 19:47 | XR_ITS ---
PROCEDURE: XR CHEST 2V CLINICAL HISTORY: hypertension Hypertension with headache COMPARISON: CR CXR1 CHEST-PORTABLE from 05/08/2014 CR CXR CHEST(2 VIEWS-NOT PORTABLE) from 11/20/2014 FINDINGS: The cardiomediastinal silhouette and pulmonary vascularity are within normal limits. The lungs are clear without infiltrates, suspicious nodules, or pleural effusions. No acute bony abnormalities. IMPRESSION: No acute findings. Dictated by: Carlos Mistry MD 05/18/2020 05:23 Carlos Mistry MD in [place] 05/18/2020 05:23
[2020-05-17 20:07] LABS: Basophils # 0.1 K/mm3 (0-0.2); Basophils % 0.6 % (0.1-2.0); Eosinophils # 0.1 K/mm3 (0.0-0.4); Eosinophils % 1.7 % (0.1-12.0); Hematocrit 45.1 % (37.0-47.0); Hemoglobin 14.3 g/dL (12.2-16.2); Lymphocytes # 2.4 K/mm3 (0.7-4.5); Lymphocytes % 32.9 % (10-50); Mean Corpuscular HGB Conc 31.6 g/dL (31.8-35.4); Mean Corpuscular Hemoglobin 29.6 pg (27.0-31.2); Mean Corpuscular Volume 93.6 fl (81-99); Mean Platelet Volume 7.1 fl (7.4-10.4); Monocytes # 0.3 K/mm3 (0.1-1.0); Monocytes % 3.6 % (1.7-9.3); Neutrophils # 4.4 K/mm3 (1.8-7.8); Neutrophils % 61.2 % (37.0-80.0); Platelet Count 268 K/mm3 (142-424); Red Blood Count 4.82 M/mm3 (4.20-5.40); Red Cell Distribution Width 13.9 % (11.5-17.5); White Blood Count 7.2 K/mm3 (4.8-10.8)
[2020-05-17 20:11] LABS: Chloride 102 mmol/L (98-107)
[2020-05-17 20:12] LABS: Potassium 3.5 mmoL/L (3.5-5.1); Sodium 139 mmol/L (136-145)
[2020-05-17 20:14] LABS: Alanine Aminotransferase 26 U/L (12-78); Alkaline Phosphatase 84 U/L (38-126); Anion Gap 11.5 mEq/L (5-15); Aspartate Amino Transferase 36 U/L (14-36); Bilirubin,Direct 0.1 mg/dl (0.0-0.4); Bilirubin,Indirect 0.3 mg/dL (0.0-0.9); Bilirubin,Total 0.4 mg/dl (0.2-1.3); Bilirubin,Unconjugated 0.3 mg/dL (0.0-1.1); Blood Urea Nitrogen 21 mg/dl (7-17); Carbon Dioxide 29 mmol/L (22.0-30.0); Creatinine Clearance Estimated 68 mL/min (50-200); Estimated Glomerular Filt Rate 47 ml/min (>60); GFR (African American) 57 ML/MIN (>60)
[2020-05-17 20:15] LABS: Albumin Level 4.5 g/dl (3.5-5.0); Calcium 10.4 mg/dl (8.4-10.2); Glucose 135 mg/dl (74-100); Total Protein,Serum 7.9 g/dl (6.3-8.2)
[2020-05-17 20:21] VITALS: BP 169/76; PULSE 66; RESP 16; O2SAT 97
[2020-05-17 20:27] LABS: Troponin I < 0.01 ng/ml (0.00-0.034)
--- NOTE | 2020-05-17 20:38 | HMH.EDGENADL ---
ED Disposition Clinical Impression: Headache Qualifiers: Headache type: unspecified Headache chronicity pattern: acute headache Intractability: not intractable Qualified Code(s): R51.9 - Headache, unspecified High blood pressure Qualifiers: Hypertension type: unspecified Qualified Code(s): I10 - Essential (primary) hypertension Disposition: Home, Self-Care Condition on Discharge: Good Instructions: Recommendations to Help Prevent High Blood Pressure Additional Instructions: Follow up with Dr. Grayson for your blood pressure. Have your creatinine (kidney function) rechecked - it was mildly elevated to 1.2 today. Drinking plently of fluids can help correct this. Return with any concerns. Referrals: Buddy Grayson MD [Primary Care Provider] - - Critical Care Critical Care Time: No Attestation: On 05/17/20, the high probability of a clinically significant, sudden or life threatening deterioration of the following system(s) required my full and direct attention, intervention and personal management. The time I documented below is in addition to time spent performing reported procedures but includes the following listed in this critical care notation. Medical Decision Making - Medical Records Medical records reviewed: Yes: I reviewed the patient's medical records. - Mason Inquiry Pt receiving controlled substance: No Mason was queried for this patient: No Vital Signs: 05/17/20 19:41 05/17/20 20:21 05/17/20 21:09 Temperature 97.2 F L Temperature Source Oral Pulse Rate Pulse Rate [Right Brachial] 76 66 61 Respiratory Rate 19 16 15 Blood Pressure Blood Pressure [Right Arm] 170/76 H 169/76 H 149/77 H Blood Pressure Mean [Right Arm] 107 107 101 Blood Pressure Source Blood Pressure Source [Right Arm] Automatic Cuff Automatic Cuff Automatic Cuff Blood Pressure Position Blood Pressure Position [Right Arm] Sitting Sitting Sitting 02 Sat by Pulse Oximetry 98 97 98 Oxygen Delivery Method Room Air Room Air Room Air 05/17/20 21:12 Temperature 97.8 F Temperature Source Oral Pulse Rate 80 Pulse Rate [Right Brachial] Respiratory Rate 14 Blood Pressure 142/90 H Blood Pressure [Right Arm] Blood Pressure Mean [Right Arm] Blood Pressure Source Automatic Cuff Blood Pressure Source [Right Arm] Blood Pressure Position Sitting Blood Pressure Position [Right Arm] 02 Sat by Pulse Oximetry Oxygen Delivery Method Room Air - Lab Data Lab Results 05/17/20 19:55: WBC 7.2, RBC 4.82, Hgb 14.3, Hct 45.1, MCV 93.6, MCH 29.6, MCHC 31.6 L, RDW 13.9, Plt Count 268, MPV 7.1 L, Neut % (Auto) 61.2, Lymph % (Auto) 32.9, [place] % (Auto) 3.6, Eos % (Auto) 1.7, Baso % (Auto) 0.6, Neut # (Auto) 4.4, Lymph # (Auto) 2.4, [place] # (Auto) 0.3, Eos # (Auto) 0.1, Baso # (Auto) 0.1 05/17/20 19:55: Sodium 139, Potassium 3.5, Chloride 102, Carbon Dioxide 29, Anion Gap 11.5, BUN 21 H, Creatinine 1.20 H, Estimated Creat Clear 68, Estimated GFR 47 L, Est GFR ( Amer) 57 L, Glucose 135 H, Calcium 10.4 H, Total Bilirubin 0.4, Direct Bilirubin 0.1, Conjugated Bilirubin 0.0, Indirect Bilirubin 0.3, Unconjugated Bilirubin 0.3, AST 36, ALT 26, Alkaline Phosphatase 84, Troponin I < 0.01, Total Protein 7.9, Albumin 4.5 Result diagrams: 05/17/20 19:55 05/17/20 19:55 Orders (Tests/Meds): ED MEDICATIONS Discontinued Medications Generic Name Dose Route Start Last Admin Trade Name Albinq PRN Reason Stop Dose Admin Acetaminophen 500 mg 05/17/20 20:18 05/17/20 20:40 Acetaminophen 500mg Tab PO 05/17/20 20:19 500 mg ONCE ONE Administration Hydralazine HCl 10 mg 05/17/20 21:00 05/17/20 20:40 Hydralazine 10mg Tablet PO 06/16/20 20:59 10 mg TID JAYLAN Administration Ketorolac Tromethamine 15 mg 05/17/20 20:17 05/17/20 20:40 Ketorolac 30mg/Ml Vial IV 05/17/20 20:18 15 mg ONCE ONE Administration ORDERS Category Date Time Status CT head/brain wo con Stat Cat Scan 05/17/20 19:47 Taken
[2020-05-17 21:09] VITALS: BP 149/77; PULSE 61; RESP 15; O2SAT 98
[2020-05-17 21:12] VITALS: BP 142/90; PULSE 80; RESP 14; TEMP 36.6; O2SAT 99
== END 2020-05-17 21:18 | disposition home or self-care (01) ==
PROVIDERS: Emergency Medicine; Emergency Provider Emergency Medicine; PCP Family Medicine
DX: I16.0 Hypertensive urgency (principal); R51.9 Headache, unspecified; I47.2 Ventricular tachycardia; K21.9 Gastro-esophageal reflux disease without esophagitis; E78.5 Hyperlipidemia, unspecified; Z88.0 Allergy status to penicillin; Z90.49 Acquired absence of other specified parts of digestive tract; Z90.710 Acquired absence of both cervix and uterus
CPT/HCPCS: 70450; 71046; 80048; 80076; 84484; 85025; 93005; 96375; 99283

== ENCOUNTER → 2020-10-12 16:04 | Outpatient (POV) | payer BC, SELFPAY | PROVIDERS: Visit Provider Dermatology | DX: Z00.00 Encounter for general adult medical examination without abnormal findings (principal) ==

== ENCOUNTER → 2020-10-18 14:41 | Outpatient (CLI) | payer BC, SELFPAY ==
--- NOTE | 2020-10-18 14:46 | MM_ITS ---
PROCEDURE: MM DIG MAMM DX UNILAT RT CAD Digital Breast Tomosynthesis Included CLINICAL INDICATION: 6 MONTH FOLLOW UP Follow-up abnormal mammogram COMPARISON: MG DIG MAMM-SCREEN KASHIF from 09/24/2018 MG MM DIG SCREENING MAMM BI W/CAD from 04/01/2020 US US BREAST RT COMPLETE from 04/16/2020 MG MM DIG MAMM DX UNILAT RT CAD from 04/16/2020 US US BREAST RT COMPLETE from 10/18/2020 TECHNIQUE: Standard images performed along with spot Mag views and tomosynthesis FINDINGS: Average fibroglandular tissue. Benign-appearing calcifications once again noted in the upper outer aspect of the right breast. No malignant appearing mass or malignant-appearing microcalcification evident. There is a hypoechoic nodule at 10 o'clock with the small central area of increased echogenicity suggesting a small intramammary lymph node. This was not demonstrated on the previous exam. IMPRESSION: Benign findings. No change. Recommend continued screening mammogram March 2021 and right breast ultrasound. BI-RAD Category: 3 Probably Benign Finding Short Term Follow-Up FOLLOW-UP: 6M 6 Month Follow-up (A letter has been sent to the patient regarding results of the study.) Dictated by: Carlos Mistry MD 10/22/2020 13:20 Carlos Mistry MD in [place] 10/22/2020 13:20
== END ==
PROVIDERS: PCP Family Medicine; Visit Provider Family Medicine
DX: R92.8 Other abnormal and inconclusive findings on diagnostic imaging of breast (principal)
CPT/HCPCS: 76641; 77061; 77065; G0279

== ENCOUNTER → 2020-12-24 09:38 | Outpatient (CLI) | payer BC, SELFPAY ==
--- NOTE | 2020-12-24 09:43 | XR_ITS ---
PROCEDURE: XR KNEE RT 4V CLINICAL INDICATION: knee pain Right knee pain with swelling COMPARISON: CR XR KNEE RT 3V from 03/24/2020 CR XR KNEE RT 4V from 04/19/2020 FINDINGS: No fracture or dislocation. No lytic or blastic change. There is normal mineralization. Mild tricompartmental osteoarthritic changes with a least 2 loose intra-articular bodies at the tibial spine region. This is not significantly changed. Small suprapatellar effusion noted. Other findings:None. IMPRESSION: Overall no change osteoarthritis with loose bodies with knee joint effusion Dictated by: Carlos Mistry MD 12/24/2020 12:24 Carlos Mistry MD in [place] 12/24/2020 12:24
== END ==
PROVIDERS: PCP Family Medicine; Visit Provider Orthopaedic Surgery
DX: M22.2X1 Patellofemoral disorders, right knee (principal)
CPT/HCPCS: 73564

== ENCOUNTER 2021-02-07 16:21 | Emergency (ER) | payer BC, SELFPAY ==
[2021-02-07 17:06] VITALS: BP 106/70; PULSE 78; RESP 20; TEMP 36.9; O2SAT 98; BMI 24.3
--- NOTE | 2021-02-07 17:16 | HMH.EDUTC ---
[facility] [place] Clinical Impression: Sinusitis Qualifiers: Sinusitis location: unspecified location Chronicity: unspecified Qualified Code(s): J32.9 - Chronic sinusitis, unspecified Disposition: Home, Self-Care Condition on Discharge: Good Instructions: Sinusitis, DI for Sinusitis Additional Instructions: *Monitor Temp, Over the counter Motrin or Tylenol as directed/as needed Tylenol every 4 hours and Motrin every 6 hours (as long as your family doctor has told you that you can take it) for fever or pain. and straight to ER if unable to lower temp less than 101.0 after medication given *Warm salt water gargles may help to soothe the throat *Throat Lozenges *Warm fluids like tea with honey may help to soothe the throat *Sleep elevated *Humidifier/Vaporizer Take medication as prescribed Follow up with Family Doctor if no improvement or any worsening of symptoms Follow up IMMEDIATELY for new or worsening symptoms or no Noticeable improvement over the next 48-72 hours. 911 for difficulty breathing or swallowing Prescriptions: Doxycycline Monohydrate [Doxycycline Brooks 100mg Tab] 100 mg PO BID 7 Days #14 tab Transmission Status: Pending to [facility] methylPREDNISolone [Medrol 4mg tab] 4 mg PO DIRECTED #21 tab Transmission Status: Pending to [facility] Referrals: Buddy Grayson MD [Primary Care Provider] - As needed Time of Disposition: 17:28 Medical Decision Making - Mason Inquiry Pt receiving controlled substance: No Mason was queried for this patient: No Vital Signs: 02/07/21 17:06 Temperature 98.5 F Temperature Source Oral Pulse Rate [Right Brachial] 78 Respiratory Rate 20 Blood Pressure [Right Arm] 106/70 L Blood Pressure Mean [Right Arm] 82 Blood Pressure Source [Right Arm] Automatic Cuff Blood Pressure Position [Right Arm] Sitting 02 Sat by Pulse Oximetry 98 Oxygen Delivery Method Room Air Medical Decision Narrative: Patient states that she has taken prednisone and doxy in the past without reactions and complications [facility] [place] - General Stated complaint: drainage,ears, Time Seen by Provider: 02/07/21 17:16 Mode of Arrival: Ambulatory Source of Information: Patient Limitations: No Limitations Description of Symptoms (Recalled from Triage Doc. by RN): PATIENT C/O SCRATCHY THROAT, COUGH AND EARS POPPING HEENT Symptoms (Recalled from RN notes): Yes Resp Symptoms (Recalled from RN notes): No Skin Symptoms (Recalled from RN notes): No MS Symptoms (Recalled from RN notes): No Functional Status (Recalled from RN notes): WNL - History of Present Illness Provider Complaint: Patient states that she has been having sinus congestion and drainage in the back of her throat for over a month States that over the last few days it has got worse States that she is having sinus pressure along with drainage in the back of throat and feeling like her ears are full and popping States that she has been taking her allergy medication but not helped much - Related Data Home Medications Medication Instructions Recorded Confirmed allopurinol 300 mg tablet 300 mg PO DAILY 07/30/18 12/24/20 conjugated estrogens 0.625 mg/gram 1 dose VAGINAL DAILY g 07/30/18 12/24/20 vaginal cream paroxetine HCl 10 mg tablet 10 mg PO DAILY 07/30/18 12/24/20 simvastatin 40 mg tablet 40 mg PO QHS 07/30/18 12/24/20 bisoprolol fumarate 5 mg tablet 2.5 mg PO DAILY tab 07/31/19 12/24/20 oxazepam 15 mg capsule 15 mg PO DAILY cap 07/31/19 12/24/20 pantoprazole 40 mg tablet,delayed 40 mg PO DAILY tab 07/31/19 12/24/20 release Previous Rx's Medication Instructions Recorded Doxycycline Monohydrate 100 mg PO BID 7 Days #14 tab 02/07/21 [Doxycycline Brooks 100mg Tab] methylPREDNISolone [Medrol 4mg 4 mg PO DIRECTED #21 tab 02/07/21 tab] Allergies Allergy/AdvReac Type Severity Reaction Status Date / Time Penicillins [PENICILLINS] Allergy Unknown Verified 12/24/20 10:35
[2021-02-07 17:30] VITALS: BP 106/70; PULSE 78; RESP 20; TEMP 36.9; O2SAT 98
== END 2021-02-07 17:33 | disposition home or self-care (01) ==
PROVIDERS: Emergency Provider Nurse Practitioner; PCP Family Medicine
DX: J32.9 Chronic sinusitis, unspecified (principal); J02.9 Acute pharyngitis, unspecified; K21.9 Gastro-esophageal reflux disease without esophagitis; E78.5 Hyperlipidemia, unspecified; I10 Essential (primary) hypertension; Z79.899 Other long term (current) drug therapy; Z88.0 Allergy status to penicillin
CPT/HCPCS: 99202; G0463

== ENCOUNTER → 2021-05-04 14:50 | Outpatient (CLI) | payer BC, SELFPAY ==
--- NOTE | 2021-05-04 14:52 | MM_ITS ---
PROCEDURE INFORMATION: Exam: US Right Breast, Complete MG Bilateral Screening 3D Mammography Exam date and time: 05/04/2021 2:52 PM Age: 50 years old Clinical indication: 6 month follow up for nodule right breast TECHNIQUE: Imaging protocol: Complete ultrasound of all four quadrants of the Right breast and the retroareolar regions, including ultrasound of the axilla when performed. Bilateral screening tomosynthesis and 2D mammography including computer-aided detection (CAD) when performed. COMPARISON: 1. MG MM DIG MAMM DX UNILAT RT CAD 10/18/2020 2:59 PM 2. MG MM DIG MAMM DX UNILAT RT CAD 04/16/2020 2:44 PM FINDINGS: MAMMOGRAPHY: Breast composition: The breast tissue is heterogeneously dense, which may obscure small masses. Mass: None. Architectural distortion: None. Calcifications: None. Asymmetric density: None. Skin thickening: None. Axillary adenopathy: None. ULTRASOUND: Right solid masses: None. Right cystic masses: None. Right architectural distortion: None. Right acoustical shadowing: None. Right skin thickening: None. Right axillary adenopathy: None. IMPRESSION: No mammographic or sonographic evidence of malignancy. Annual screening is recommended unless otherwise clinically indicated. ASSESSMENT: BI-RADS Category 1: Negative
== END ==
PROVIDERS: PCP Family Medicine; Visit Provider Family Medicine
DX: Z12.31 Encounter for screening mammogram for malignant neoplasm of breast (principal); R92.8 Other abnormal and inconclusive findings on diagnostic imaging of breast; Z09 Encounter for follow-up examination after completed treatment for conditions other than malignant neoplasm
CPT/HCPCS: 76641; 77063; 77067

== ENCOUNTER → 2021-05-26 08:05 | Outpatient (CLI) | payer BC, SELFPAY | PROVIDERS: PCP Family Medicine; Visit Provider Nurse Practitioner | DX: Z20.822 Contact with and (suspected) exposure to COVID-19 (principal) | CPT/HCPCS: C9803; U0003; U0005 ==

== ENCOUNTER → 2021-06-29 10:58 | Outpatient (CLI) | payer BC, SELFPAY ==
--- NOTE | 2021-06-29 11:05 | CA_ITS ---
FINAL REPORT TECHNIQUE: Color Doppler, duplex Doppler and compression sonography of the right lower extremity venous system was performed. CLINICAL HISTORY: HTN, Hyperlipidemia. Patient states her right leg has been swelling for a while like months with it getting worse in recent days. She is on her feet a great deal and said that her distal veins near her ankles will bulge at the end of a long day. FINDINGS: There is no evidence of deep venous thrombosis from the level of the groin to the calf. The veins are patent and compressible. There is an incidental finding of a moderate right popliteal cyst measuring 3.1 x 0.5 cm IMPRESSION: No evidence of deep venous thrombosis right lower extremity. Incidental finding of moderate popliteal cyst. Reviewed, Interpreted and Dictated by Joel Mckeon III, MD Transcribed by Meera Easley Authenticated by Joel Mckeon III, MD on 06/29/2021 01:33:39 PM [facility]
== END ==
PROVIDERS: PCP Family Medicine; Visit Provider Family Medicine
DX: I87.2 Venous insufficiency (chronic) (peripheral) (principal); M79.604 Pain in right leg
CPT/HCPCS: 93971

== ENCOUNTER 2021-07-26 19:48 | Emergency (ER) | payer BC, SELFPAY ==
[2021-07-26 20:18] VITALS: BP 0/0; PULSE 0; RESP 0; TEMP -17.7; TEMP 0
== END 2021-07-26 20:42 | disposition left against medical advice (07) ==
LOC: UTC 20:03
PROVIDERS: Emergency Provider Nurse Practitioner Family; PCP Family Medicine
DX: M79.674 Pain in right toe(s) (principal); Z53.21 Procedure and treatment not carried out due to patient leaving prior to being seen by health care provider

== ENCOUNTER → 2021-07-27 09:09 | Outpatient (CLI) | payer BC, SELFPAY ==
[2021-07-27 10:09] LABS: Uric Acid 3.8 mg/dl (2.5-6.2)
== END ==
PROVIDERS: Visit Provider Nurse Practitioner
DX: L03.90 Cellulitis, unspecified (principal)
CPT/HCPCS: 84550

== ENCOUNTER 2021-07-30 08:59 | Emergency (ER) | payer BC, SELFPAY ==
[2021-07-30 09:00] VITALS: BP 127/71; PULSE 64; RESP 20; TEMP 36.8; O2SAT 99; BMI 23.6
--- NOTE | 2021-07-30 09:33 | HMH.EDUTC ---
[facility] [place] Disposition Clinical Impression: Cellulitis Qualifiers: Site of cellulitis: unspecified site Qualified Code(s): L03.90 - Cellulitis, unspecified Disposition: Home, Self-Care Condition on Discharge: Good Instructions: Trimethoprim/Sulfamethoxazole (Alternative Therapy), Cellulitis, Mupirocin Additional Instructions: Continue taking the medication that you was prescribed Continue to soak foot in warm water and epson salt may help with swelling Apply topical medication to back of little toe on your right foot as directed Follow up with Podiatry if no improvement or any worsening of symptoms Return if needed Straight to ER if any life threatening symptoms Prescriptions: Mupirocin Calcium [Mupirocin 2% Cream 15gm] 1 applicatio TP TID 10 Days #15 gm Transmission Status: Pending to [facility] Referrals: Pablo Powers MD [Primary Care Provider] - As needed Carole Zhang DPM [Staff Physician] - Wilma Emery APRN [Nurse Practitioner] - Forms: Work/School Release Time of Disposition: 09:40 Medical Decision Making - Mason Inquiry Pt receiving controlled substance: No Mason was queried for this patient: No Vital Signs: 07/30/21 09:00 Temperature 98.2 F Temperature Source Oral Pulse Rate [Right Brachial] 64 Respiratory Rate 20 Blood Pressure [Right Arm] 127/71 Blood Pressure Mean [Right Arm] 89 Blood Pressure Source [Right Arm] Automatic Cuff Blood Pressure Position [Right Arm] Sitting 02 Sat by Pulse Oximetry 99 Oxygen Delivery Method Room Air Orders (Tests/Meds): ORDERS Category Date Time Status Wound Culture and Gram Stain Stat Micro 07/30/21 09:20 Received [facility] [place] HPI - General Stated complaint: abcess on right foot Time Seen by Provider: 07/30/21 09:34 Mode of Arrival: Ambulatory Source of Information: Patient Limitations: No Limitations Description of Symptoms (Recalled from Triage Doc. by RN): PATIENT C/O ABSCESS TO RIGHT 5TH TOE. SHE HAS BEEN ON ANTIBIOTICS SINCE SUNDAY, BUT IS CONCERNED THAT ABSCESS MAY NEED TO BE LANCED. HEENT Symptoms (Recalled from RN notes): No Resp Symptoms (Recalled from RN notes): No Skin Symptoms (Recalled from RN notes): Yes MS Symptoms (Recalled from RN notes): No Functional Status (Recalled from RN notes): WNL - History of Present Illness Provider Complaint: Patient states that she has been having redness and swelling to her right foot that is around her third, fourth and fifth toe States that she was started on anitbiotics on Sun and the redness and swelling is better but looks like she has an area on the back of her little toe that needs lanced so she came in to get it checked - Related Data Home Medications Medication Instructions Recorded Confirmed allopurinol 300 mg tablet 300 mg PO DAILY 07/30/18 12/24/20 conjugated estrogens 0.625 mg/gram 1 dose VAGINAL DAILY g 07/30/18 12/24/20 vaginal cream paroxetine HCl 10 mg tablet 10 mg PO DAILY 07/30/18 12/24/20 simvastatin 40 mg tablet 40 mg PO QHS 07/30/18 12/24/20 bisoprolol fumarate 5 mg tablet 2.5 mg PO DAILY tab 07/31/19 12/24/20 oxazepam 15 mg capsule 15 mg PO DAILY cap 07/31/19 12/24/20 pantoprazole 40 mg tablet,delayed 40 mg PO DAILY tab 07/31/19 12/24/20 release Previous Rx's Medication Instructions Recorded Doxycycline Monohydrate 100 mg PO BID 7 Days #14 tab 02/07/21 [Doxycycline [place] 100mg Tab] methylPREDNISolone [Medrol 4mg 4 mg PO DIRECTED #21 tab 02/07/21 tab] Mupirocin Calcium [Mupirocin 2% 1 applicatio TP TID 10 Days #15 gm 07/30/21 Cream 15gm] Allergies Allergy/AdvReac Type Severity Reaction Status Date / Time Penicillins [PENICILLINS] Allergy Unknown Verified 12/24/20 10:35 - Worker's Comp Is this a Worker's Comp case?: No [facility] History - Hepatitis A Screen Drug use history?: No High risk sexual behaviors?: No History of sexually transmitted infection?: No Currently employed?: No Childcare worker?: No Do you have
[2021-07-30 09:50] VITALS: BP 127/71; PULSE 64; RESP 20; TEMP 36.8; O2SAT 99
== END 2021-07-30 09:53 | disposition home or self-care (01) ==
PROVIDERS: Emergency Provider Nurse Practitioner; PCP Family Medicine
DX: L03.031 Cellulitis of right toe (principal); A49.01 Methicillin susceptible Staphylococcus aureus infection, unspecified site; K21.9 Gastro-esophageal reflux disease without esophagitis; I10 Essential (primary) hypertension; E78.5 Hyperlipidemia, unspecified; Z88.0 Allergy status to penicillin; Z79.899 Other long term (current) drug therapy
CPT/HCPCS: 10060; 87070; 87077; 87186; 87205; 99213; G0463

== ENCOUNTER → 2021-08-01 09:09 | Outpatient (CLI) | payer BC, SELFPAY ==
--- NOTE | 2021-08-01 09:14 | XR_ITS ---
FINAL REPORT CLINICAL HISTORY: wound, cellulitis - under 5th phalanx FINDINGS: 3 weight-bearing views of the right foot were obtained. There is no acute fracture or dislocation. The joint spaces are intact. There is a small plantar spur. The soft tissues are unremarkable. IMPRESSION: No acute process. Reviewed, Interpreted and Dictated by Nikita Camacho MD Transcribed by Rashid Brown Authenticated by Nikita Camacho MD on 08/01/2021 12:14:28 PM [facility]
== END ==
PROVIDERS: PCP Family Medicine; Visit Provider Podiatrist
DX: M79.671 Pain in right foot (principal); L03.031 Cellulitis of right toe; S90.424A Blister (nonthermal), right lesser toe(s), initial encounter; B95.8 Unspecified staphylococcus as the cause of diseases classified elsewhere
CPT/HCPCS: 73630; 87070; 87077; 87186; 87205

== ENCOUNTER → 2021-08-15 13:00 | Outpatient (CLI) | payer BC, SELFPAY | PROVIDERS: Visit Provider Podiatrist | DX: M79.674 Pain in right toe(s) (principal); B35.1 Tinea unguium; L60.3 Nail dystrophy | CPT/HCPCS: 87102; 87206; 87220 ==

== ENCOUNTER 2021-08-16 14:00 | Outpatient (RCR) | payer BC, SELFPAY | END 2021-08-16 14:05 | disposition home or self-care (01) | LOC: PT 14:00 | PROVIDERS: PCP Family Medicine; Visit Provider Orthopaedic Surgery | DX: M17.11 Unilateral primary osteoarthritis, right knee (principal) | CPT/HCPCS: 97010; 97014; 97110; 97163; 97760; G0283 ==

== ENCOUNTER → 2021-09-24 11:49 | Outpatient (CLI) | payer BC, SELFPAY ==
--- NOTE | 2021-09-24 11:54 | XR_ITS ---
PROCEDURE INFORMATION: Exam: XR Lumbosacral Spine Exam date and time: 09/24/2021 11:56 AM Age: 50 years old Clinical indication: Pain; Sciatica TECHNIQUE: Imaging protocol: XR of the lumbosacral spine. Views: 2 or 3 views. COMPARISON: No relevant prior studies available. FINDINGS: Bones/joints: Normal. No acute fracture. Normal alignment. Soft tissues: Unremarkable. IMPRESSION: No acute findings.
== END ==
PROVIDERS: PCP Family Medicine; Visit Provider Family Medicine
DX: M54.31 Sciatica, right side (principal)
CPT/HCPCS: 72100

== ENCOUNTER → 2021-11-15 16:14 | Outpatient (POV) | payer BC, SELFPAY | PROVIDERS: Visit Provider Dermatology | DX: Z00.00 Encounter for general adult medical examination without abnormal findings (principal) ==

== ENCOUNTER 2022-01-29 11:26 | Emergency (ER) | payer BC, SELFPAY ==
[2022-01-29 11:27] VITALS: BP 151/79; PULSE 79; RESP 18; TEMP 36.8; O2SAT 99; BMI 27.1
--- NOTE | 2022-01-29 11:45 | PC.NURSE ---
ED MD AT BEDSIDE
--- NOTE | 2022-01-29 11:46 | PC.NURSE ---
PT PLACED IN GOWN AND WARM BLANKET PROVIDED
--- NOTE | 2022-01-29 12:09 | PC.NURSE ---
ACCOMPANIED ED MD FOR VAG EXAM
[2022-01-29 12:21] LABS: Microscopic, Urine URINE MICROSCOPIC (MICROSCOPIC)
[2022-01-29 12:23] LABS: Appearance,Urine CLEAR (Clear); Bilirubin,Urine Negative (Negative); Blood, Urine 2+ (Negative); Color,Urine YELLOW (Yellow); Glucose,Urine (UA) Negative (Negative); Ketones,Urine Negative (Negative); Leukocyte Esterase,Urine Negative (Negative); Nitrate,Urine Negative (Negative); PH,Urine 6.5 (5.0-8.5); Protein,Urine TRACE (Negative); Specific Gravity, Urine 1.025 (1.005-1.030)
--- NOTE | 2022-01-29 12:32 | HMH.EDGENADL ---
Discharge Plan Disposition Patient Disposition: Home, Self-Care Condition: Fair Prescriptions Prescriptions: New doxycycline monohydrate 100 mg capsule 100 mg PO BID Qty: 20 0RF No Action Premarin 0.625 mg/gram cream 1 dose VAGINAL DAILY simvastatin [Zocor] 40 mg tablet 40 mg PO QHS allopurinol 300 mg tablet 300 mg PO DAILY paroxetine HCl 20 mg tablet 20 mg PO meloxicam 15 mg tablet 15 mg PO Label Comments: TAKE ONE TABLET BY MOUTH EVERY DAY --TAKE WITH FOOD-- flecainide 50 mg tablet 50 mg PO Q12H lisinopril 10 mg tablet 10 mg PO Label Comments: TAKE ONE TABLET BY MOUTH EVERY DAY diltiazem HCl 120 mg capsule,extended release 24hr 120 mg PO Label Comments: TAKE TWO CAPSULES BY MOUTH EVERY DAY estradiol 0.5 mg tablet 0.5 mg PO fluticasone propionate 50 mcg/actuation spray,suspension INTRANASAL fluconazole 100 mg tablet 100 mg PO Q24H 7 Days Qty: 7 0RF ciclopirox 8 % solution 1 applic TOPICAL DAILY 90 Days Qty: 6.6 3RF Rx Instructions: Apply directed to affected toenail daily. Smooth with emery board weekly. oxazepam 15 mg capsule 15 mg PO DAILY pantoprazole 40 mg tablet,delayed release (DR/EC) 40 mg PO DAILY sulfamethoxazole-trimethoprim 800-160 mg tablet 1 tab PO BID 5 Days Qty: 10 0RF mupirocin calcium 15 GM cream 1 applicatio TP TID 10 Days Qty: 15 0RF Referrals Follow up/Referrals: Buddy Grayson MD [Primary Care Provider] - See instructions Ronaldo Venegas MD [Staff Physician] - See instructions Activity Restrictions/Add. Instructions Additional Instructions/Restrictions: Doxycycline as prescribed. Ibuprofen for pain and inflammation. Follow-up with Dr. Venegas for urology evaluation, call tomorrow to make appointment. Clinical Impressions Clinical Impression: Urethral pain Discharge ED Provider: Adarsh Vaughn General Adult HPI General Chief complaint: Vaginal Bleeding Stated complaint: Vaginal bleeding, discomfort Time Seen by Provider: 01/29/22 12:00 Mode of Arrival: Ambulatory Limitations: No Limitations Description of Symptoms (Recalled from ER Triage Doc. by RN): PT WITH C/O VAGINAL PAIN AND PRESSURE. STATES SHE WAS TREATED FROM YEAST INFECTION ON SUNDAY. REPORTS SCANT AMOUNT OF LIGHT PINK VAGINAL DISCHARGE History of Present Illness HPI narrative: Patient states that she began having some irritation in her vaginal area over a week ago. She spoke with the operator receptionist at Dr. Yuen's office who suggested it might be a yeast infection. She contacted her primary care provider and was prescribed a dose of Diflucan. Symptoms did not improve. She now has increased pain and irritation and also has noticed some pink discharge. She wonders whether she has a dropped bladder. She says that she has some mild difficulty starting her urinary stream, otherwise no urinary complaints. No abdominal pain. No vomiting or fever. She has had a complete hysterectomy previously. She is and has no change in her sexual activity. Related Data Home Medications Medication Instructions Recorded Confirmed allopurinol 300 mg tablet 300 mg PO DAILY GOUT 07/30/18 10/17/21 conjugated estrogens 0.625 mg/gram 1 dose vaginal DAILY Supplement 07/30/18 10/17/21 vaginal cream (Premarin) simvastatin 40 mg tablet (Zocor) 40 mg PO QHS Cholesterol 07/30/18 10/17/21 oxazepam 15 mg capsule 15 mg PO DAILY Anxiety 07/31/19 10/17/21 pantoprazole 40 mg tablet,delayed 40 mg PO DAILY ppi 07/31/19 10/17/21 release diltiazem HCl 120 mg 120 mg PO 08/01/21 10/17/21 capsule,extended release 24 hr estradiol 0.5 mg tablet 0.5 mg PO 08/01/21 10/17/21 flecainide 50 mg tablet 50 mg PO Q12H 08/01/21 10/17/21 fluticasone propionate 50 spray intranasal 08/01/21 10/17/21 mcg/actuation nasal spray,suspension lisinopril 10 mg tablet 10 mg PO 08/01/21 10/17/21 meloxicam 15 mg ta
[2022-01-29 12:45] VITALS: BP 120/80; PULSE 73; RESP 18; TEMP 36.8; O2SAT 98
[2022-01-31 22:07] LABS: Neisseria gonorrhoeae, NAA Negative (Negative)
== END 2022-01-29 12:45 | disposition home or self-care (01) ==
PROVIDERS: Emergency Provider Emergency Medicine; PCP Family Medicine
DX: N36.8 Other specified disorders of urethra (principal)
CPT/HCPCS: 81001; 87491; 87591; 99283

== ENCOUNTER → 2022-03-08 11:03 | Outpatient (CLI) | payer BC, SELFPAY ==
--- NOTE | 2022-03-08 11:11 | XR_ITS ---
FINAL REPORT CLINICAL HISTORY: R HIP PAIN FINDINGS: 2 views of the right hip and an AP pelvis were obtained. There is no acute fracture or dislocation. The joint spaces are intact. There are no soft tissue abnormalities. IMPRESSION: No acute process. Reviewed, Interpreted and Dictated by Joel Mckeon III, MD Transcribed by Rashid Brown Authenticated and [facility]
== END ==
PROVIDERS: PCP Family Medicine; Visit Provider Physician Assistant
DX: M25.551 Pain in right hip (principal); M79.651 Pain in right thigh
CPT/HCPCS: 73502

== ENCOUNTER 2022-04-03 12:21 | Emergency (ER) | payer BC, SELFPAY ==
[2022-04-03 13:40] VITALS: BP 123/74; PULSE 74; RESP 19; TEMP 36.6; O2SAT 98; BMI 27.4
--- NOTE | 2022-04-03 14:03 | EXP.UTC ---
Discharge Plan Disposition Patient Disposition: Home, Self-Care Condition: Good Prescriptions Prescriptions: New ondansetron 4 mg tablet,disintegrating 4 mg PO Q8H PRN (Reason: nausea and vomiting) Qty: 10 0RF No Action Premarin 0.625 mg/gram cream 1 dose VAGINAL DAILY simvastatin [Zocor] 40 mg tablet 40 mg PO QHS allopurinol 300 mg tablet 300 mg PO DAILY paroxetine HCl 20 mg tablet 20 mg PO meloxicam 15 mg tablet 15 mg PO Label Comments: TAKE ONE TABLET BY MOUTH EVERY DAY --TAKE WITH FOOD-- flecainide 50 mg tablet 50 mg PO Q12H lisinopril 10 mg tablet 10 mg PO Label Comments: TAKE ONE TABLET BY MOUTH EVERY DAY diltiazem HCl 120 mg capsule,extended release 24hr 120 mg PO Label Comments: TAKE TWO CAPSULES BY MOUTH EVERY DAY estradiol 0.5 mg tablet 0.5 mg PO fluticasone propionate 50 mcg/actuation spray,suspension INTRANASAL fluconazole 100 mg tablet 100 mg PO Q24H 7 Days Qty: 7 0RF ciclopirox 8 % solution 1 applic TOPICAL DAILY 90 Days Qty: 6.6 3RF Rx Instructions: Apply directed to affected toenail daily. Smooth with emery board weekly. oxazepam 15 mg capsule 15 mg PO DAILY pantoprazole 40 mg tablet,delayed release (DR/EC) 40 mg PO DAILY sulfamethoxazole-trimethoprim 800-160 mg tablet 1 tab PO BID 5 Days Qty: 10 0RF mupirocin calcium 15 GM cream 1 applicatio TP TID 10 Days Qty: 15 0RF doxycycline monohydrate 100 mg capsule 100 mg PO BID Qty: 20 0RF Referrals Follow up/Referrals: Buddy Grayson MD [Primary Care Provider] - See instructions Activity Restrictions/Add. Instructions Additional Instructions/Restrictions: Drink extra fluids with and between meals. If you have difficulty drinking, try very small amounts of water or suck on ice chips. ? Avoid fruit juices, as these do not replace minerals and can actually increase diarrhea. ? Children and adults can use sports drinks to replenish electrolytes. Younger children and infants should use products formulated for children, like oral rehydration solutions. ? Eat food in small amounts and let your stomach recover. ? Get lots of rest. You may feel tired or weak. ? No greasy or fried foods for the next 24-48 hours BRAT diet Bananas Rice Apples and [place] ? Make sure to drink plenty of liquids ? Return if needed ? Straight to ER if any life threatening symptoms ? Zofran as prescribed ? You was given an outpatient order for diarrhea panel, please collect specimen and bring back to outpatient lab then call back to the [facility] or follow up with family doctor for results ? Follow up with family doctor in the next 48-72 hours if no improvement or any worsening of symptoms Clinical Impressions Clinical Impression: Viral syndrome Instructions Patient Instructions: Diarrhea, DI for Nausea -- Adult Discharge ED Provider: Dione Rubin [facility] [place] General Stated complaint: nausea diarrhea Mode of Arrival: Ambulatory Source of Information: Patient Limitations: No Limitations Time Seen by Provider: 04/03/22 14:03 Description of Symptoms (Recalled from Triage Doc. by RN): PATIENT C/O NAUSEA, DIARRHEA, AND DECREASED APPETITE SINCE SUNDAY HEENT Symptoms (Recalled from RN notes): No Resp Symptoms (Recalled from RN notes): No Skin Symptoms (Recalled from RN notes): No MS Symptoms (Recalled from RN notes): No Functional Status (Recalled from RN notes): WNL History of Present Illness Provider Complaint: Patient states that she was having nausea over the weekend with decreased appetite but no diarrhea and today while at work she started with diarrhea States that she hasnt had any fever or anything but wanted to get checked out Related Data Home Medications Medication Instructions Recorded Confirmed allopurinol 300 mg tablet 300 mg PO D
[2022-04-03 14:25] VITALS: BP 123/74; PULSE 74; RESP 19; TEMP 36.6; O2SAT 98
== END 2022-04-03 14:26 | disposition home or self-care (01) ==
PROVIDERS: Emergency Provider Nurse Practitioner; PCP Family Medicine
DX: R11.0 Nausea (principal); R19.7 Diarrhea, unspecified; B34.9 Viral infection, unspecified
CPT/HCPCS: 99212; G0463

== ENCOUNTER → 2022-04-04 08:16 | Outpatient (CLI) | payer BC, SELFPAY ==
[2022-04-04 08:22] LABS: Adenovirus F 40/41, stool Not Detected (NotDetected); Campylobacter Not Detected (NotDetected); Clostridium Difficile A/B, PCR Not Detected (NotDetected); Cryptosporidium Not Detected (NotDetected); Cyclospora Cayetanesis Not Detected (NotDetected); Entamoeba histolytica Not Detected (NotDetected); Enteroaggregative E coli Not Detected (NotDetected); Enteropathogenic E coli Not Detected (NotDetected); Enterotoxigenic E coli Not Detected (NotDetected); Giardia lamblia Not Detected (NotDetected); Norovirus Not Detected (NotDetected); Plesimonas Shigalloides, PCR Not Detected (NotDetected); Rotavirus A Not Detected (NotDetected); Salmonella, PCR Not Detected (NotDetected); Sapovirus Not Detected (NotDetected); Shiga-like toxin E coli Not Detected (NotDetected); Shigella Enterovasive E coli Not Detected (NotDetected); Vibrio Cholerae Not Detected (NotDetected); Vibrio, PCR Not Detected (NotDetected); Yersinia Entercolitica, PCR Not Detected (NotDetected)
[2022-04-04 15:56] LABS: Astrovirus Detected (NotDetected)
== END ==
PROVIDERS: PCP Family Medicine; Visit Provider Nurse Practitioner
DX: R19.7 Diarrhea, unspecified (principal); A08.32 Astrovirus enteritis
CPT/HCPCS: 87507

== ENCOUNTER → 2022-06-05 16:47 | Outpatient (CLI) | payer BC, SELFPAY ==
--- NOTE | 2022-06-05 16:51 | MM_ITS ---
PROCEDURE INFORMATION: Exam: MG Bilateral Screening 3D Mammography Exam date and time: 06/05/2022 4:42 PM Age: 51 years old Clinical indication: Screening examination TECHNIQUE: Imaging protocol: Bilateral Screening tomosynthesis and 2D mammography including computer-aided detection (CAD) when performed. COMPARISON: 1. MG MM DIG SCREENING MAMM BI W/CAD 05/04/2021 2:46 PM 2. MG MM DIG MAMM DX UNILAT RT CAD 10/18/2020 2:59 PM FINDINGS: MAMMOGRAPHY: Breast composition: There are scattered areas of fibroglandular density. Mass: None. Architectural distortion: None. Calcifications: No suspicious calcifications. Asymmetric density: None. Skin thickening: None. Axillary adenopathy: None. IMPRESSION: No mammographic evidence of malignancy. Annual screening is recommended unless otherwise clinically indicated. ASSESSMENT: BI-RADS Category 1: Negative
== END ==
PROVIDERS: PCP Family Medicine; Visit Provider Family Medicine
DX: Z12.31 Encounter for screening mammogram for malignant neoplasm of breast (principal)
CPT/HCPCS: 77063; 77067

== ENCOUNTER → 2022-06-30 07:08 | Outpatient (CLI) | payer BC, SELFPAY ==
[2022-06-30 09:00] LABS: Alanine Aminotransferase 25 U/L (12-78); Albumin Level 4.4 g/dl (3.5-5.0); Albumin/Globulin Ratio 1.7 (1.1-1.8); Alkaline Phosphatase 89 U/L (38-126); Anion Gap 7.6 mEq/L (5-15); Aspartate Amino Transferase 30 U/L (14-36); Bilirubin,Total 0.4 mg/dl (0.2-1.3); Blood Urea Nitrogen 20 mg/dl (7-17); Calcium 9.5 mg/dl (8.4-10.2); Carbon Dioxide 29 mmol/L (22.0-30.0); Chloride 108 mmol/L (98-107); Chol/HDL Ratio 2.4 (1-3.5); Cholesterol 244 mg/dl (140-200); Estimated Glomerular Filt Rate 58 ml/min (>60); GFR (African American) 70 ML/MIN (>60); Globulin 2.6 g/dL (1.3-3.2); Glucose 92 mg/dl (74-100); HDL Cholesterol 102 mg/dl (40-60); Potassium 4.6 mmoL/L (3.5-5.1); Sodium 140 mmol/L (136-145); Triglycerides 76 mg/dl (30-150); Uric Acid 4.6 mg/dl (2.5-6.2); VLDL Cholesterol 15 mg/dL (0-40)
[2022-06-30 09:02] LABS: Erythrocyte Sedimentation Rate 15 mm/hr (0-30)
[2022-06-30 09:13] LABS: C-Reactive Protein 5.7 mg/L (0-4)
[2022-06-30 09:31] LABS: Thyroid Stimulating Hormone 0.94 uIU/mL (0.465-4.68)
[2022-07-06 22:56] LABS: Antinuclear Antibodies, IFA POSITIVE
== END ==
PROVIDERS: PCP Family Medicine; Visit Provider Family Medicine
DX: I10 Essential (primary) hypertension (principal); E78.5 Hyperlipidemia, unspecified; E79.0 Hyperuricemia without signs of inflammatory arthritis and tophaceous disease; M06.4 Inflammatory polyarthropathy
CPT/HCPCS: 36415; 80053; 80061; 84443; 84550; 85651; 86038; 86140; 86431

== ENCOUNTER 2022-07-18 15:43 | Emergency (ER) | payer BC, SELFPAY ==
[2022-07-18 16:00] VITALS: BP 146/83; PULSE 72; RESP 20; TEMP 37.2; O2SAT 98; BMI 29.8
--- NOTE | 2022-07-18 16:34 | EXP.UTC ---
Discharge Plan Disposition Patient Disposition: Home, Self-Care Condition: Good Prescriptions Prescriptions: New methylprednisolone [Medrol (Durga)] 4 mg tablets,dose pack See Rx Instructions .Route .COMPLEX 6 Days Qty: 21 0RF Rx Instructions: taper pack; No Action simvastatin [Zocor] 40 mg tablet 40 mg PO QHS allopurinol 300 mg tablet 300 mg PO DAILY paroxetine HCl 20 mg tablet 20 mg PO DAILY flecainide 50 mg tablet 50 mg PO Q12H lisinopril 10 mg tablet 10 mg PO DAILY Label Comments: TAKE ONE TABLET BY MOUTH EVERY DAY diltiazem HCl 120 mg capsule,extended release 24hr 120 mg PO DAILY Label Comments: TAKE TWO CAPSULES BY MOUTH EVERY DAY estradiol 0.5 mg tablet 0.5 mg PO DAILY oxazepam 15 mg capsule 15 mg PO DAILY pantoprazole 40 mg tablet,delayed release (DR/EC) 40 mg PO DAILY Referrals Follow up/Referrals: Buddy Grayson MD [Primary Care Provider] - See instructions Activity Restrictions/Add. Instructions Additional Instructions/Restrictions: *Monitor Temp, Over the counter Motrin or Tylenol as directed/as needed Tylenol every 4 hours and Motrin every 6 hours (as long as your family doctor has told you that you can take it) for fever or pain. and straight to ER if unable to lower temp less than 101.0 after medication given *Warm salt water gargles may help to soothe the throat *Throat Lozenges? *Warm fluids like tea with honey may help to soothe the throat? *Sleep elevated *Humidifier/Vaporizer *Flonase 2 sprays in each nostril daily but be aware that it may take 2-3 days before you notice improvement Your throat swab was sent for culture. Those results are typically sent to your primary care. Be sure to follow up in 2-3 days with your family doctor/primary care physician if no improvement so they can review those result and treat if necessary. If you don?t have a primary care doctor, I recommend you get one but in the mean time, you will have to return to a walk in clinic Follow up IMMEDIATELY for new or worsening symptoms or no Noticeable improvement over the next 48-72 hours. 911 for difficulty breathing or swallowing Clinical Impressions Clinical Impression: Eustachian tube dysfunction Instructions Patient Instructions: Sore Throat, DI for Eustachian Tube Dysfunction-Adult Discharge ED Provider: Dione Rubin [facility] General Stated complaint: sore throat and scratchy,ears stopped up Mode of Arrival: Ambulatory Source of Information: Patient Limitations: No Limitations Time Seen by Provider: 07/18/22 16:34 Description of Symptoms (Recalled from Triage Doc. by RN): sore throat, ear pain, voice is crackling HEENT Symptoms (Recalled from RN notes): Yes Resp Symptoms (Recalled from RN notes): No Skin Symptoms (Recalled from RN notes): No MS Symptoms (Recalled from RN notes): No Functional Status (Recalled from RN notes): n/a History of Present Illness Provider Complaint: Patient that she has been having sore throat, drainage, feeling like her ears is all stopped up and needing to pop and today she got up and had lost her voice and over all not feeling well so she came in Related Data Home Medications Medication Instructions Recorded Confirmed allopurinol 300 mg tablet 300 mg PO DAILY GOUT 07/30/18 07/18/22 simvastatin 40 mg tablet (Zocor) 40 mg PO QHS Cholesterol 07/30/18 07/18/22 oxazepam 15 mg capsule 15 mg PO DAILY Anxiety 07/31/19 07/18/22 pantoprazole 40 mg tablet,delayed 40 mg PO DAILY ppi 07/31/19 07/18/22 release diltiazem HCl 120 mg 120 mg PO DAILY . 08/01/21 07/18/22 capsule,extended release 24 hr estradiol 0.5 mg tablet 0.5 mg PO DAILY . 08/01/21 07/18/22 flecainide 50 mg tablet 50 mg PO Q12H / 08/01/21 07/18/22 lisinopril 10 mg tablet 10 mg PO DAILY . 08/01/21 07/18/22 paroxetine HCl 20 mg tablet 20 mg PO DAILY . 08/01/21 07/18/22 Previous Rx's Medication
[2022-07-18 16:35] LABS: UTC Strep Screen (Rapid) Negative (Negative)
[2022-07-18 17:05] VITALS: BP 146/83; PULSE 72; RESP 20; TEMP 37.2; O2SAT 98
== END 2022-07-18 17:05 | disposition home or self-care (01) ==
PROVIDERS: Emergency Provider Nurse Practitioner; PCP Family Medicine
DX: H69.83 Other specified disorders of Eustachian tube, bilateral (principal); R07.0 Pain in throat
CPT/HCPCS: 87880; 99212; 99214; G0463

== ENCOUNTER 2022-07-22 08:01 | Emergency (ER) | payer BC, SELFPAY ==
[2022-07-22 08:05] VITALS: BP 157/80; PULSE 60; RESP 22; TEMP 37; O2SAT 98; BMI 30.4
[2022-07-22 08:16] VITALS: BP 157/80; PULSE 60; RESP 22; TEMP 37; O2SAT 98
--- NOTE | 2022-07-22 08:24 | EXP.UTC ---
Discharge Plan Disposition Patient Disposition: Home, Self-Care Condition: Good Prescriptions Prescriptions: New doxycycline hyclate 100 mg capsule 100 mg PO BID Qty: 20 0RF loratadine 10 mg tablet 10 mg PO DAILY Qty: 30 1RF No Action simvastatin [Zocor] 40 mg tablet 40 mg PO QHS allopurinol 300 mg tablet 300 mg PO DAILY paroxetine HCl 20 mg tablet 20 mg PO DAILY flecainide 50 mg tablet 50 mg PO Q12H lisinopril 10 mg tablet 10 mg PO DAILY Label Comments: TAKE ONE TABLET BY MOUTH EVERY DAY diltiazem HCl 120 mg capsule,extended release 24hr 120 mg PO DAILY Label Comments: TAKE TWO CAPSULES BY MOUTH EVERY DAY estradiol 0.5 mg tablet 0.5 mg PO DAILY oxazepam 15 mg capsule 15 mg PO DAILY pantoprazole 40 mg tablet,delayed release (DR/EC) 40 mg PO DAILY methylprednisolone [Medrol (Durga)] 4 mg tablets,dose pack See Rx Instructions .Route .COMPLEX 6 Days Qty: 21 0RF Rx Instructions: taper pack; Referrals Follow up/Referrals: Buddy Grayson MD [Primary Care Provider] - See instructions Activity Restrictions/Add. Instructions Additional Instructions/Restrictions: Do not start antibiotics unless symptoms persist for another week or if drainage turns to a bright green. Continue to take Coricidin HBP for cough Clinical Impressions Clinical Impression: Upper respiratory tract infection Instructions Patient Instructions: DI for Viral Upper Respiratory Infection -- Adult Discharge ED Provider: Marisela Garcia [facility] [place] H[place] General Stated complaint: Congestion,cough, left ear, scratchy throat Mode of Arrival: Ambulatory Source of Information: Patient Limitations: No Limitations Time Seen by Provider: 07/22/22 08:20 Description of Symptoms (Recalled from Triage Doc. by RN): PATIENT C/O COUGH AND CHEST CONGESTION. SHE WAS SEEN IN [facility] ON SUNDAY AND GIVEN A STEROID PACK, BUT STATES SHE IS WORSE TODAY HEENT Symptoms (Recalled from RN notes): No Resp Symptoms (Recalled from RN notes): Yes Skin Symptoms (Recalled from RN notes): No MS Symptoms (Recalled from RN notes): No Functional Status (Recalled from RN notes): WNL History of Present Illness Provider Complaint: Pt states that her symptoms started on Sunday with ear pain and sinus congestion. She states that it has now moved down to her chest and her drainage is turning to a light green. She states that she has been taking Coricidin, steroids, and using Flonase for her symptoms. Related Data Home Medications Medication Instructions Recorded Confirmed allopurinol 300 mg tablet 300 mg PO DAILY GOUT 07/30/18 07/18/22 simvastatin 40 mg tablet (Zocor) 40 mg PO QHS Cholesterol 07/30/18 07/18/22 oxazepam 15 mg capsule 15 mg PO DAILY Anxiety 07/31/19 07/18/22 pantoprazole 40 mg tablet,delayed 40 mg PO DAILY ppi 07/31/19 07/18/22 release diltiazem HCl 120 mg 120 mg PO DAILY . 08/01/21 07/18/22 capsule,extended release 24 hr estradiol 0.5 mg tablet 0.5 mg PO DAILY . 08/01/21 07/18/22 flecainide 50 mg tablet 50 mg PO Q12H / 08/01/21 07/18/22 lisinopril 10 mg tablet 10 mg PO DAILY . 08/01/21 07/18/22 paroxetine HCl 20 mg tablet 20 mg PO DAILY . 08/01/21 07/18/22 Previous Rx's Medication Instructions Recorded methylprednisolone 4 mg tablets in See Rx Instructions .Route 07/18/22 a dose pack (Medrol (Durga)) .COMPLEX 6 days #21 tabs doxycycline hyclate 100 mg capsule 100 mg PO BID #20 caps 07/22/22 loratadine 10 mg tablet 10 mg PO DAILY #30 tabs 07/22/22 Allergies Allergy/AdvReac Type Severity Reaction Status Date / Time Penicillins [PENICILLINS] Allergy Unknown Verified 07/18/22 16:21 Worker's Comp Is this a Worker's Comp case?: No [facility] Disclaimer: The information contained in this section may have been updated after the patient was seen, as this information can be updated by other users. Medical History (Updated 07/22/22 @ 08:31 by Marisela Aragon
== END 2022-07-22 08:34 | disposition home or self-care (01) ==
PROVIDERS: Emergency Provider Nurse Practitioner Family; PCP Family Medicine
DX: J06.9 Acute upper respiratory infection, unspecified (principal)
CPT/HCPCS: 99212; 99214; G0463

== ENCOUNTER 2023-01-04 16:30 | Outpatient (RCR) | payer BC, SELFPAY | END 2023-01-04 16:35 | disposition home or self-care (01) | LOC: PT 16:30 | PROVIDERS: PCP Family Medicine; Visit Provider Podiatrist Foot & Ankle Surgery | DX: M76.62 Achilles tendinitis, left leg (principal) | CPT/HCPCS: 97010; 97014; 97033; 97035; 97110; 97163; G0283 ==

== ENCOUNTER → 2023-02-14 10:08 | Outpatient (CLI) | payer BC, SELFPAY ==
--- NOTE | 2023-02-14 10:11 | XR_ITS ---
FINAL REPORT CLINICAL HISTORY: HTN COMPARISON: 05/17/2020 FINDINGS: Two views of the chest were obtained. The heart size and pulmonary vascularity are within normal limits. The mediastinum is normal. No acute pulmonary abnormality is identified. There is no pneumothorax. The bony thorax is intact. IMPRESSION: No active cardiopulmonary disease. Reviewed, Interpreted and Dictated by Joel Mckeon III, MD Transcribed by Natasha Olvera Authenticated and . [facility]
--- OUTSIDE RECORDS SUMMARY | 2023-02-14 10:12 | XMS_ITS | Clinical Summary ---
Author Name Unknown Address [address] [place] [address] [place] [address] Phone Organization [facility] , [facility] Address [address] [place] [address] Phone Care Team Providers Care Trumpet Teacher Name Role Phone Gary Mi MD Unavailable [phone] SYLVIE POLK MD Unavailable [phone] Reason for Visit and Chief Complaint The Chief Complaint is: RT Knee pain Problems Includes: Problems addressed during this encounter and other active Problems All Visits Onset Date Resolved Date Provider Condition S tatus Joint Pain in the Right Knee 07/11/2021 Rosalio Easley PA-C Active Plan of Treatment Patient was seen by myself Rosalio Easley PA-C. Patient will follow up after the MRI of the right knee with Dr. Dill to see if she does truly have the loose bodies may benefit from arthroscopy - Last Documented On 07/21/2021 3:32PM ; [facility] Patient was seen by myself and Dr. Fuentes Easley PA-C. Patient will follow up 4 weeks we will try Mobic recommended she stop her Naprosyn physical therapy if this does not help consider injections. - Last Documented On 07/21/2021 3:32PM ; [facility] Pending Tests Order Diagnosis Results Due Ordering P rovider Therapy - Physical Therapy Knee 07/21/21 Jim Dill MD Instructions to patient Lose weight Last Documented On 3:10PM ; [facility] Assessments Includes: Assessments from this encounter Finding
--- OUTSIDE RECORDS SUMMARY | 2023-02-14 10:12 | XMS_ITS | Clinical Summary ---
Author Name Unknown Address [address] [place] [address] [place] [address] Phone Organization [facility] , [facility] Address [address] [place] [address] Phone Care Team Providers Care Fast Food Supervisor Name Role Phone Gary Mi MD Unavailable [phone] SYLVIE POLK MD Unavailable [phone] Reason for Visit and Chief Complaint The Chief Complaint is: R hip pain Problems Includes: Problems addressed during this encounter and other active Problems All Visits Onset Date Resolved Date Provider Condition S tatus Joint Pain in the Right Knee 07/11/2021 Rosalio Easley PA-C Active Plan of Treatment Patient was seen by myself Rosalio Easley PA-C. Patient will follow up as needed she can be released with no restrictions at this point in time this comes back we can always consider another injection in the future. - Last Documented On 04/26/2022 8:19AM ; [facility] Instructions to patient Lose weight Last Documented On 2 7:58AM ; [facility] Assessments Includes: Assessments from this encounter Findings Right hip pain - Last Documented On 04/26/2022 8:19AM ; [facility] Instructions Includes: Instructions from this encounter Instructions to patient Lose weight Last Documented On 2 7:58AM ; [facility], [facility] Medical Equipm
--- OUTSIDE RECORDS SUMMARY | 2023-02-14 10:12 | XMS_ITS ---
Author Name Unknown Address [address] [place] [address] [place] [address] Phone Organization [facility] Address [address] [address] Phone Care Team Providers Care Shale Planer Operator Helper Name Role Phone Gary Mi MD Unavailable [phone] SYLVIE POLK MD Unavailable [phone] Problems Includes: Active, inactive, and resolved Problems All Visits Onset Date Resolved Date Provider Condition S tatus Joint Pain in the Right Knee 07/11/2021 Rosalio Easley PA-C Active Plan of Treatment Instructions to patient Lose weight Last Documented On 2 7:58AM ; [facility] Lose weight Last Documented On 2 8:07AM ; [facility] Lose weight Last Documented On 2 2:14PM ; [facility] Lose weight Last Documented On 2 3:10PM ; [facility] Lose weight Last Documented On 2 8:38AM ; [facility], [facility] Assessments Includes: Assessments for all patient encounters No Assessments Recorded Instructions Includes: Instructions for all patient encounters Instructions to patient Lose weight
--- OUTSIDE RECORDS SUMMARY | 2023-02-14 10:12 | XMS_ITS | Clinical Summary ---
Author Name Unknown Address [address] [place] [address] [place] [address] Phone Organization [facility] , [facility] Address [address] [place] [address] Phone Care Team Providers Care Grants Administrator Name Role Phone Gary Mi MD Unavailable [phone] SYLVIE POLK MD Unavailable [phone] Reason for Visit and Chief Complaint The Chief Complaint is: RT Knee pain Problems Includes: Problems addressed during this encounter and other active Problems All Visits Onset Date Resolved Date Provider Condition S tatus Joint Pain in the Right Knee 07/11/2021 Rosalio Easley PA-C Active Plan of Treatment Instructions to patient Lose weight Last Documented On 2 2:14PM ; [facility], [facility] Assessments Includes: Assessments from this encounter Findings Right knee OA - Last Documented On 09/02/2021 3:08PM ; [facility], [facility] Instructions Includes: Instructions from this encounter Instructions to patient Lose weight Last Documented On 2 2:14PM ; [facility], [facility] Medical Equipment - Implanted Devices Includes: Current Devices No Medical Equipment Recorded Medications Includes: Medications discussed during this encounter and other current Medications Current Medications (continue as prescribed)
--- OUTSIDE RECORDS SUMMARY | 2023-02-14 10:12 | XMS_ITS | Clinical Summary ---
Author Name Unknown Address [address] [place] [address] [place] [address] Phone Organization [facility] , [facility] Address [address] [place] [address] Phone Care Team Providers Care Range Operator Name Role Phone Gary Mi MD Unavailable [phone] SYLVIE POLK MD Unavailable [phone] [...] Rosalio Easley PA-C. Patient will follow up 4 weeks after we try cortisone injection under fluoroscopy if that does not help then we will consider an MRI of the right hip. - Last Documented On 04/18/2022 2:00PM ; [facility] Instructions to patient Lose weight Last Documented On 8:07AM ; [facility] Assessments Includes: Assessments from this encounter Findings Right hip pain - Last Documented On 04/18/2022 2:00PM ; [facility] Instructions Includes: Instructions from this encounter Instructions to patient Lose weight Last Documented On 2 8:07AM ; [facility] Medical Equipment - Implanted De
--- OUTSIDE RECORDS SUMMARY | 2023-02-14 10:12 | XMS_ITS | Clinical Summary ---
Author Name Unknown Address [address] [place] [address] [place] [address] Phone Organization [facility] Address [address] [place] [address] Phone Care Team Providers Care Direct Care Staffer Name Role Phone Gary Mi MD Unavailable [phone] SYLVIE POLK MD Unavailable [phone] Reason for Visit and Chief Complaint INJECTION Problems Includes: Problems addressed during this encounter and other active Problems All Visits Onset Date Resolved Date Provider Condition S tatus Joint Pain in the Right Knee 07/11/2021 Rosalio Easley PA-C Active Plan of Treatment No Plan of Treatment Recorded Assessments Includes: Assessments from this encounter No Assessments Recorded Medical Equipment - Implanted Devices Includes: Current Devices No Medical Equipment Recorded Medications Includes: Medications discussed during this encounter and other current Medications Current Medications (continue as prescribed) Zocor 10 MG Oral Tablet 07/11/2021 Provider: Diagnosis: Aleve 220 MG Oral Capsule 07/11/2021 Provider: Diagnosis: [facility] Vitamin B12 1000 MCG Oral Tablet 07/11/2021 Prov ider: Diagnosis:
--- OUTSIDE RECORDS SUMMARY | 2023-02-14 10:12 | XMS_ITS ---
Care Plan - [facility], [facility] Created on: February 14, 2023 Pratibha Bonilla : 1970 Sex: Female Author Name Unknown Address [address] [place] [address] [place] [address] Phone Organization [facility] Address [address] [place] [address] [place] [address] Phone Care Team Providers Care Surveillance Officer Name Role Phone Shmuel KAHN, Gary Unavailable [phone] SYLVIE POLK MD Unavailable [phone]
== END ==
PROVIDERS: PCP Family Medicine; Visit Provider Physician Assistant
DX: Z01.818 Encounter for other preprocedural examination (principal)
CPT/HCPCS: 71046

== ENCOUNTER → 2023-03-13 08:18 | Outpatient (POV) | payer BC, SELFPAY | PROVIDERS: Visit Provider Dermatology | DX: Z00.00 Encounter for general adult medical examination without abnormal findings (principal) ==

== ENCOUNTER 2023-05-20 09:53 | Emergency (ER) | payer OTHER, SELFPAY ==
[2023-05-20 10:25] VITALS: BP 128/88; PULSE 79; RESP 20; TEMP 36.8; O2SAT 100; BMI 34.3
[2023-05-20 10:31] LABS: UTC Strep Screen (Rapid) Negative (Negative)
--- NOTE | 2023-05-20 10:44 | EXP.UTC ---
Discharge Plan Disposition Patient Disposition: Home, Self-Care Condition: Good Prescriptions Prescriptions: No Action celecoxib 200 mg capsule 200 mg PO DAILY Patient Comments: TAKE ONE CAPSULE BY MOUTH EVERY DAY --TAKE WITH FOOD-- oxazepam 15 mg capsule 15 mg PO DAILY Patient Comments: TAKE ONE CAPSULE BY MOUTH EVERY DAY NEEDED paroxetine HCl 20 mg tablet 20 mg PO DAILY Patient Comments: TAKE ONE TABLET BY MOUTH EVERY DAY pantoprazole 40 mg tablet,delayed release (DR/EC) 40 mg PO DAILY Patient Comments: TAKE ONE TABLET BY MOUTH EVERY DAY lisinopril 10 mg tablet 10 mg PO DAILY Patient Comments: TAKE ONE TABLET BY MOUTH EVERY DAY flecainide 50 mg tablet 50 mg PO BID Patient Comments: TAKE ONE TABLET BY MOUTH TWICE DAILY diltiazem HCl [Cartia XT] 120 mg capsule,extended release 24hr 120 mg PO DAILY Patient Comments: TAKE TWO CAPSULES BY MOUTH EVERY DAY loratadine 10 mg tablet 10 mg PO DAILY Patient Comments: TAKE ONE TABLET BY MOUTH EVERY DAY Referrals Follow up/Referrals: Buddy Grayson MD [Primary Care Provider] - See instructions Activity Restrictions/Add. Instructions Additional Instructions/Restrictions: *Monitor Temp, Over the counter Motrin or Tylenol as directed/as needed Tylenol every 4 hours and Motrin every 6 hours (as long as your family doctor has told you that you can take it) for fever or pain. and straight to ER if unable to lower temp less than 101.0 after medication given *Warm salt water gargles may help to soothe the throat *Throat Lozenges? *Warm fluids like tea with honey may help to soothe the throat? *Sleep elevated *Humidifier/Vaporizer *Your throat swab was sent for culture. Those results are typically sent to your primary care. Be sure to follow up in 2-3 days with your family doctor/primary care physician if no improvement so they can review those result and treat if necessary. If you don?t have a primary care doctor, I recommend you get one but in the mean time, you will have to return to a walk in clinic Follow up IMMEDIATELY for new or worsening symptoms or no Noticeable improvement over the next 48-72 hours. 911 for difficulty breathing or swallowing Clinical Impressions Clinical Impression: COVID-19 Stand Alone Forms Stand Alone Forms: Work/School Release Instructions Patient Instructions: DI for COVID-19 (Suspected or Confirmed ) Discharge ED Provider: Dione Rubin [facility] [place] HPI General Stated complaint: sore throat, congestion Mode of Arrival: Ambulatory Source of Information: Patient Limitations: No Limitations Time Seen by Provider: 05/20/23 10:44 Description of Symptoms (Recalled from Triage Doc. by RN): PATIENT C/O SORE THROAT, EAR PAIN, AND HEAD PRESSURE X 2 DAYS HEENT Symptoms (Recalled from RN notes): Yes Resp Symptoms (Recalled from RN notes): No Skin Symptoms (Recalled from RN notes): No MS Symptoms (Recalled from RN notes): No Functional Status (Recalled from RN notes): WNL History of Present Illness Provider Complaint: Patient states that for the last couple of days she has been having sinus pain and pressure, pressure in her ears, and sore throat States that she has pain and pressure in her gums and palate area from her sinuses and feels like she may have a bad sinus infection Related Data Home Medications Medication Instructions Recorded Confirmed celecoxib 200 mg capsule 200 mg PO DAILY 05/20/23 05/20/23 diltiazem HCl 120 mg 120 mg PO DAILY 05/20/23 05/20/23 capsule,extended release 24 hr (Cartia XT) flecainide 50 mg tablet 50 mg PO BID 05/20/23 05/20/23 lisinopril 10 mg tablet 10 mg PO DAILY 05/20/23 05/20/23 loratadine 10 mg tablet 10 mg PO DAILY 05/20/23 05/20/23 oxazepam 15 mg capsule 15 mg PO DAILY 05/20/23 05/20/23 pantoprazole 40 mg tablet,delayed 40 mg PO DAILY 05/20/23 05/20/23 release paroxetine HCl 20 mg tablet 20 mg PO DAILY 05/20/23 05/20/23 Allergies Allergy/AdvReac Type Severity Reaction Status Date / Time Penicillins [PENICILLINS] Allergy Unknown Verified 07/18/22 16:21 Worker's Comp Is this a Worker's Comp case?: No [facility] Disclaimer: The information contained in this section may have been updated after the patient was seen, as this information can be updated by other users. Medical History (Updated 05/20/23 @ 10:56 by Dione Rubin APRN) Anxiety Depression Family history of total abdominal hysterectomy and bilateral salpingo-oophorectomy (KALEE-BSO) FH: cholecystectomy Hyperlipidemia Hypertension Urethral bleeding Surgical History History of cholecystectomy History of hysterectomy History of tonsillectomy History of tonsillectomy and adenoidectomy History of tubal ligation Social History Smoking Status: Never smoker alcohol intake: never substance use type: other current occupational status: employed Travel in the last 8 weeks: None household members: spouse housing: house current occupation: clinic pharmacy current occupational exposures/hazards: No caffeine: No ROS Obtained: Yes All systems reviewed & no additional complaints except as documented and Yes Systems reviewed as appropriate & no additional complaints except as documented Constitutional Constitutional: Reports system reviewed and no additional complaints, except as documented, Reports as per HPI and Reports headache(s) ENT Ears, Nose, Mouth, and Throat: Reports system reviewed and no additional complaints, except as documented, Reports as per HPI, Reports headache(s), Reports sinus pain, Reports sinus pressure and Reports sore throat Cardiovascular Cardiovascular: Reports system reviewed and no additional complaints, except as documented and Reports as per HPI Respiratory Respiratory: Reports system reviewed and no additional complaints, except as documented and Reports as per HPI Gastrointestinal Gastrointestingal: Reports system reviewed and no additional complaints, except as documented and as per HPI Neurologic Neurologic: Reports headache(s) Physical Exam General General appearance: alert and in no apparent distress ENT ENT exam: Present mucous membranes moist Expanded ENT Exam Nose exam: Present sinus tenderness Throat exam: Present other (Pharyngeal erythema noted with PND) Respiratory Respiratory exam: Present normal lung sounds bilaterally; Absent respiratory distress or wheezes Cardiovascular Cardiovascular exam: Present regular rate, normal rhythm and normal heart sounds Abdominal Exam Abdominal exam: Present soft and normal bowel sounds; Absent distention or tenderness Neurological Exam Neurological exam: Present alert, oriented X3 and normal gait Medical Decision Making Mason Inquiry Pt receiving controlled substance: No Mason was queried for this patient: No Vital Signs: 05/20/23 10:25 Temperature 98.3 F Temperature Source Oral Pulse Rate [Left Brachial] 79 Respiratory Rate 20 Blood Pressure [Left Arm] 128/88 Blood Pressure Mean [Left Arm] 101 Blood Pressure Source [Left Arm] Automatic Cuff Blood Pressure Position [Left Arm] Sitting 02 Sat by Pulse Oximetry 100 Oxygen Delivery Method Room Air Lab Data Lab results reviewed: Yes I reviewed the patient's lab results. Lab Results 05/20/23 10:18: Strep Scn Rapid Clinic Negative Orders (Tests/Meds): ORDERS Category Date Time Status Rapid PCR Covid and Flu A/B Stat Lab 05/20/23 10:18 Ordered Strep Screen Confirmation Stat Micro 05/20/23 10:18 Received
[2023-05-20 10:49] LABS: Coronavirus 19, PCR Detected (NotDetected); Influenza A, PCR Not Detected (NotDetected); Influenza B, PCR Not Detected (NotDetected)
[2023-05-20 10:59] VITALS: BP 128/88; PULSE 79; RESP 20; TEMP 36.8; O2SAT 100
== END 2023-05-20 11:01 | disposition home or self-care (01) ==
PROVIDERS: Emergency Provider Nurse Practitioner; PCP Family Medicine
DX: U07.1 COVID-19 (principal); R51.9 Headache, unspecified; R07.0 Pain in throat; H92.03 Otalgia, bilateral; R09.81 Nasal congestion; I10 Essential (primary) hypertension; E78.5 Hyperlipidemia, unspecified
CPT/HCPCS: 87636; 87880; 99212; 99213; G0463

== ENCOUNTER 2023-06-18 16:17 | Outpatient (CLI) | payer OTHER, SELFPAY ==
--- NOTE | 2023-06-18 16:22 | MM_ITS ---
PROCEDURE INFORMATION: Exam: MG Bilateral Screening 3D Mammography Exam date and time: 06/18/2023 4:08 PM Age: 52 years old Clinical indication: Screening examination TECHNIQUE: Imaging protocol: Bilateral Screening tomosynthesis and 2D mammography including computer-aided detection (CAD) when performed. COMPARISON: 1. MG MM DIG SCREENING MAMM BI W/CAD 06/05/2022 4:42 PM 2. MG MM DIG SCREENING MAMM BI W/CAD 05/04/2021 2:46 PM FINDINGS: MAMMOGRAPHY: Breast composition: The breasts are heterogeneously dense, which may obscure small masses. Mass: None. Architectural distortion: None. Calcifications: No suspicious calcifications. Asymmetric density: None. Skin thickening: None. Axillary adenopathy: None. IMPRESSION: No mammographic evidence of malignancy. Annual screening is recommended unless otherwise clinically indicated. ASSESSMENT: BI-RADS Category 1: Negative
== END 2023-06-18 23:59 ==
LOC: RAD 16:19
PROVIDERS: PCP Family Medicine; Visit Provider Family Medicine
DX: Z12.31 Encounter for screening mammogram for malignant neoplasm of breast (principal)
CPT/HCPCS: 77063; 77067

== ENCOUNTER 2023-07-12 07:14 | Outpatient (CLI) | payer OTHER, SELFPAY ==
[2023-07-12 07:33] LABS: Basophils # 0.1 K/mm3 (0-0.2); Eosinophils # 0.3 K/mm3 (0.0-0.4); Eosinophils % 6.6 % (0.1-12.0); Hematocrit 44.8 % (37.0-47.0); Hemoglobin 14.1 g/dL (12.2-16.2); Lymphocytes # 1.5 K/mm3 (0.7-4.5); Lymphocytes % 29.9 % (10-50); Mean Corpuscular HGB Conc 31.5 g/dL (31.8-35.4); Mean Corpuscular Hemoglobin 30.3 pg (27.0-31.2); Mean Corpuscular Volume 96.2 fl (81-99); Mean Platelet Volume 6.6 fl (7.4-10.4); Monocytes # 0.3 K/mm3 (0.1-1.0); Monocytes % 6.3 % (1.7-9.3); Neutrophils # 2.9 K/mm3 (1.8-7.8); Neutrophils % 56.2 % (37.0-80.0); Platelet Count 340 K/mm3 (142-424); Red Blood Count 4.65 M/mm3 (4.20-5.40); Red Cell Distribution Width 14.1 % (11.5-17.5); White Blood Count 5.1 K/mm3 (4.8-10.8)
[2023-07-12 08:01] LABS: Chloride 107 mmol/L (98-107); Potassium 4.2 mmoL/L (3.5-5.1); Sodium 138 mmol/L (136-145)
[2023-07-12 08:03] LABS: Alanine Aminotransferase 23 U/L (12-78); Alkaline Phosphatase 92 U/L (38-126); Aspartate Amino Transferase 30 U/L (14-36); Bilirubin,Total 0.2 mg/dl (0.2-1.3); Blood Urea Nitrogen 21 mg/dl (7-17); Estimated Glomerular Filt Rate 58 ml/min (>60); GFR (African American) 70 ML/MIN (>60)
[2023-07-12 08:04] LABS: Albumin/Globulin Ratio 1.4 (1.1-1.8); Anion Gap 6.2 mEq/L (5-15); Calcium 9.8 mg/dl (8.4-10.2); Carbon Dioxide 29 mmol/L (22.0-30.0); Chol/HDL Ratio 3.1 (1-3.5); Cholesterol 209 mg/dl (140-200); Globulin 2.9 g/dL (1.3-3.2); Glucose 97 mg/dl (74-100); HDL Cholesterol 68 mg/dl (40-60); Total Protein,Serum 6.9 g/dl (6.3-8.2); Triglycerides 129 mg/dl (30-150); Uric Acid 4.1 mg/dl (2.5-6.2); VLDL Cholesterol 26 mg/dL (0-40)
[2023-07-12 08:11] LABS: Erythrocyte Sedimentation Rate 13 mm/hr (0-30)
[2023-07-12 08:15] LABS: C-Reactive Protein 9.8 mg/L (0-4); Direct LDL Cholesterol 84.02 mg/dL (100-129)
[2023-07-12 08:35] LABS: Thyroid Stimulating Hormone 0.65 uIU/mL (0.465-4.68)
[2023-07-17 09:59] LABS: Antinuclear Antibodies, IFA Positive
== END 2023-07-12 23:59 ==
LOC: LAB 07:15
PROVIDERS: PCP Family Medicine; Visit Provider Family Medicine
DX: M06.4 Inflammatory polyarthropathy (principal); E79.0 Hyperuricemia without signs of inflammatory arthritis and tophaceous disease; R63.5 Abnormal weight gain; E78.5 Hyperlipidemia, unspecified
CPT/HCPCS: 36415; 80053; 80061; 84443; 84550; 85025; 85651; 86038; 86140; 86431

== ENCOUNTER 2023-12-10 07:05 | Outpatient (CLI) | payer OTHER, SELFPAY ==
--- NOTE | 2023-12-10 07:13 | XR_ITS ---
FINAL REPORT CLINICAL HISTORY: LBP COMPARISON: None FINDINGS: AP, lateral, and oblique views of the lumbar spine were obtained. There is no acute fracture or acute malalignment. Vertebral body height is preserved. Multilevel degenerative joint disease is present, most severe at the L2-3 and L5-S1 levels.. No acute paraspinal abnormality is identified. IMPRESSION: No acute osseous abnormalities lumbar spine. Multilevel degenerative joint disease, most severe at L2-3 and L5-S1. Reviewed, Interpreted and Dictated by Daiana Diego MD Transcribed by Nadeen Lee Authenticated and [facility]
== END 2023-12-10 23:59 | disposition home or self-care (01) ==
PROVIDERS: PCP Family Medicine; Visit Provider Family Medicine
DX: M54.50 Low back pain, unspecified (principal)
CPT/HCPCS: 72110

== ENCOUNTER 2024-01-31 08:00 | Outpatient (RCR) | payer OTHER, SELFPAY | END 2024-01-31 08:05 | disposition home or self-care (01) | LOC: PT 08:00 | PROVIDERS: Visit Provider Nurse Practitioner | DX: M54.16 Radiculopathy, lumbar region (principal) | CPT/HCPCS: 97012; 97014; 97035; 97110; 97163; 97164; G0283 ==

== ENCOUNTER 2024-05-06 09:32 | Outpatient (CLI) | payer OTHER, SELFPAY ==
--- NOTE | 2024-05-06 09:35 | MR_ITS ---
FINAL REPORT TECHNIQUE: Multiplanar MR without contrast CLINICAL HISTORY: LFT SIDED SCIATICA FINDINGS: Sagittal images show normal vertebral height. Alignment is normal. Marrow signal pattern is unremarkable. T11-12: Minimal annular disc bulge. T12-L1: Unremarkable. L1-2: Small left lateral canal disc protrusion without canal stenosis or nerve root compression. L2-3: Annular disc bulge. L3-4: Mild annular disc bulge. Mild facet arthropathy and mild bilateral neuroforaminal narrowing. L4-5: Moderate annular disc bulge. Tiny central disc protrusion. Moderate central canal stenosis and mild neuroforaminal narrowing. L5-S1: Mild annular disc bulge. Small central disc protrusion. Mild facet arthropathy and mild bilateral neuroforaminal narrowing. IMPRESSION: Diffuse degenerative changes, most pronounced at L4-5 and L5-S1. Reviewed, Interpreted and Dictated by Chico Jaramillo MD Transcribed by Ginger Owen Authenticated and [facility]
== END 2024-05-06 23:59 | disposition home or self-care (01) ==
LOC: RAD 09:33
PROVIDERS: PCP Family Medicine; Visit Provider Nurse Practitioner
DX: M54.16 Radiculopathy, lumbar region (principal); M54.42 Lumbago with sciatica, left side; G89.29 Other chronic pain
CPT/HCPCS: 72148

== ENCOUNTER 2024-07-28 08:24 | Outpatient (CLI) | payer BC, SELFPAY ==
--- NOTE | 2024-07-28 08:28 | MM_ITS ---
PROCEDURE INFORMATION: Exam: MG Bilateral Screening 3D Mammography Exam date and time: 07/28/2024 8:45 AM Age: 53 years old Clinical indication: Screening examination TECHNIQUE: Imaging protocol: Bilateral Screening tomosynthesis and 2D mammography including computer-aided detection (CAD) when performed. COMPARISON: 1. MG MM DIG SCREENING MAMM BI W/CAD 06/18/2023 4:08 PM 2. MG MM DIG SCREENING MAMM BI W/CAD 06/05/2022 4:42 PM FINDINGS: MAMMOGRAPHY: Breast composition: There are scattered areas of fibroglandular density. Mass: No suspicious masses. Architectural distortion: None. Calcifications: No suspicious calcifications. Asymmetric density: None. Skin thickening: None. Axillary adenopathy: None. IMPRESSION: No mammographic evidence of malignancy. Annual screening is recommended unless otherwise clinically indicated. ASSESSMENT: BI-RADS Category 1: Negative.
== END 2024-07-28 23:59 | disposition home or self-care (01) ==
LOC: RAD 08:25
PROVIDERS: PCP Family Medicine; Visit Provider Family Medicine
DX: Z12.31 Encounter for screening mammogram for malignant neoplasm of breast (principal)
CPT/HCPCS: 77063; 77067

== ENCOUNTER 2025-01-09 12:49 | Outpatient (CLI) | payer BC, SELFPAY ==
--- OUTSIDE RECORDS SUMMARY | 2024-11-18 09:57 | XMS_ITS | Encounter Summary ---
Author Organization [employer] ([place], [place], [place], [place]) Address [address] [place] [address] Care Team Providers Care Rn Case Manager Name Role Phone JcMo loftonn DPPati Primary Care Provider [phone] Reason for Referral * Other (Routine) - Closed Specialty Diagnoses / Procedures Referred By Contact Referred To Contact Interventional Pain Medicine Diagnoses Sacroiliitis, not elsewhere classified (HCC) Procedures CARDIAC CATH - INJECTIONS Suzanna Curiel MD [address] [place] [address] Phone: tel: fax: [employer] [address] [place] [address] Phone: tel: Referral ID Status Reason Start Date Expiration Date Visits Re quested Visits Authorized [id number] Closed 11/10/2024 11/10/2025 1 1 Reason for Visit * Other (Routine) - Closed Specialty Diagnoses / Procedures Referred By Contact Referred To Contact Interventional Pain Medicine Diagnoses Sacroiliitis, not elsewhere classified (HCC) Procedures CARDIAC CATH - INJECTIONS Suzanna Curiel MD [address] [place] [address] Phone: tel: fax: [employer] [address] [place] [address] Phone: tel: Referral ID Status Reason Start Date Expiration Date Visits Re quested Visits Authorized [id number] Closed 11/10/2024 11/10/2025 1 1 Encounter Details Date Type Department Care Team (Latest Contact Info) Description 11/18/2024 9:57 AM EDT - 11/18/2024 11:59 PM EDT Hospital Encounter [facility] Cardiac Catheterization Lab [address] [place] [address] Suzanna Curiel MD [address] [place] [address] Sacroiliitis, not elsewhere classified (HCC) Discharge Disposition: Home or Self Care Social History Tobacco Use Types Packs/Day Years Used Date Smoking Tobacco: Never Smokeless Tobacco: Never Family and Community Support Answer Duane e Recorded Help with Day to Day Activities Not on file 09/05/2023 Feeling Lonely or Isolated Not on file 09/04 Educational Attainment Answer Date Raymon rded Speak language other than Malawian at home Not on file 09/05/2023 Want help with school or training Not on file 09/05/2023 Substance Use Answer Date Recorded Used prescription meds for non-medical reasons N ot on file 09/05/2023 Used illegal drugs past 12 months Not on file 09/05/2023 Comments No Sex and Gender Information Value Date Recorded Sex Assigned at Female 11/08/2021 8:23 PM CDT Legal Sex Female 8:23 PM CDT Gender Identity Female 11/08/2021 8:23 PM CDT Sexual Orientation Not on file documented as of this encounter Last Filed Vital Signs Vital Sign Reading Time Taken Comments Blood Pressure 134/99 11/18/2024 10:28 AM EDT Pulse 57 11/18/2024 10:28 AM EDT Temperature 36.2 C (97.2 F) 11/18/2024 10:28 AM EDT Respiratory Rate 18 11/18/2024 10:28 AM EDT Oxygen Saturation 97% 11/18/2024 10:28 AM EDT Inhaled Oxygen Concentration - - Weight 103.4 kg (228 lb) 11/18/2024 10:04 AM EDT Height 167.6 cm (5' 6 ) 11/18/2024 10:04 AM EDT Body Mass Index 36.8 11/18/2024 10:04 AM EDT documented in this encounter Medications at Time of Discharge Cartia XT 120 mg 24 hr capsule Take 2 capsules (240 mg total) by mouth daily. 09/03/2023 cholecalciferol, vitamin D3, (Vitamin D3) 50 mcg (2,000 unit) Cap Take 1 capsule (2,000 Units total) by mouth daily. cyclobenzaprine (FLEXERIL) 10 MG tabletIndication s:Radiculopathy of lumbar region Take 1 tablet (10 mg total) by mouth every night as needed for muscle spasms. 30 tablet 5 10/15/2024 10/15/2025 DULoxetine (CYMBALTA) 30 MG capsule Take 1 capsule (30 mg total) by mouth daily. estradioL (ESTRACE) 0.5 MG tablet Take 1 tablet (0.5 mg total) by mouth daily. 10/16/2023 flecainide (TAMBOCOR) 50 MG tablet Take 1 tablet (50 mg total) by mouth 2 (two) times daily. 10/16/2023 gabapentin (NEURONTIN) 300 MG capsuleIndicatio ns:Neuropathy Take 1 capsule (300 mg total) by mouth 3 (three) times daily. Max Daily Amount: 900 mg 90 capsule 5 10/15/2024 10/15/2025 lisinopriL (PRINIVIL,ZESTRI L) 10 MG tablet Take 1 tablet (10 mg total) by mouth daily. 09/11/2023 pantoprazole (PROTONIX) 40 MG tablet Take 1 tablet (40 mg total) by mouth. 05/19/2023 simvastatin (ZOCOR) 40 MG tablet Take 1 tablet (40 mg total) by mouth. traMADoL (ULTRAM) 50 mg tablet Take 1 tablet (50 mg total) by mouth every 6 (six) hours as needed. celecoxib (CeleBREX) 200 MG capsule Take 1 capsule (200 mg total) by mouth daily. 10/22/2023 documented as of this encounter Progress Notes * Coraozn Taylor RN - 11/18/2024 11:00 AM EDT Patient tolerated her injection. Vital signs were stable. Discharge instructions were given to patient. Patient was taken out to car via wheelchair. documented in this encounter H&P Notes * Suzanna Curiel MD - 11/18/2024 11:00 AM EDT I reviewed the H&P above, no changes Source Note - Suzanna Curiel MD - 11/18/2024 11:00 AM EDT documented in this encounter Plan of Treatment Upcoming Encounters Date Type Department Care Team (Late st Contact Info) Description 04/21/2025 2:00 PM EST Office Visit [facility] Neurology - [facility] [address] [facility] [address] [place] [id number] Aida Lara APRN [address] [facility] [address] [place] [address] documented as of this encounter Procedures Procedure Name Priority Date/Time Associated Diagnosis Comments CARDIAC CATH - INJECTIONS Routine 11/18/2024 10:25 AM EDT Sacroiliitis, not elsewhere classified (HCC) documented in this encounter Results * CARDIAC CATH - INJECTIONS (11/18/2024 10:25 AM EDT) Anatomical Region Laterality Modality Vascular Other Narrative 11/18/2024 11:00 AM EDT </PROCEDURE/> Sacroiliac joint injection Under Fluoroscopy </SIDE/> Bilateral </SEDATION/> None </DIAGNOSIS/> Sacroiliac arthropathy. </PROCEDURE SUMMARY/> After explaining the risks and benefits of the procedure, an informed consent was obtained. The patient was transferred to the procedure room and placed in prone position. Prior to beginning the procedure, a timeout was performed. Noninvasive monitors were applied per the procedural room nurse prepped and draped in sterile fashion. Using fluoroscopic guidance, the target areas were visualized. The skin and tissues overly was numbed with mixture of 1% Lidocaine and bicarbonate using a 25 gauge 1.5 needle. Using C-arm fluoroscopic guidance, the most inferior aspect of the SI joint target area was detected. A 22-gauge 5.0G spinal needle was directed towards the inferior aspect of the Sacroiliac joint with the x-ray guidance. After Aspiration was negative for blood and 0.25 mL of Contrast was injected for arthrogram avoiding blood vessels was obtained, then I inject of 1 ml of 5ml of mixture containing 0.25% Bupivacaine and 10 mg dexamethazone. We repeat the procedure in the superior aspect of the SI joint and inject the same amount. Upon completion of the procedure, the needle was then withdrawn and the injection site covered with band aid. The patient was transferred to recovery area in stable condition. The patient was monitored per protocol and discharged from the clinic neurologically intact and with Patient was instructed to contact my office with any questions or difficulties. We will see the patient after 2-4 weeks to re-evaluate. Pre and post procedure pain levels are documented in the chart The patient s vital signs were monitored with noninvasive monitor throughout the procedure and in the recovery area Specimens removed: None Estimated Blood loss : less than 1ml us Suzanna Curiel MD CV CARDIAC CATH ORDERABLES Yesenia l Result documented in this encounter Visit Diagnoses Diagnosis Sacroiliitis, not elsewhere classified (HCC) Sacroiliitis, not elsewhere classified documented in this encounter Administered Medications Inactive Administered Medications - up to 3 most recent administrations Medication Order MAR Action Action Date Dose Rate Site BUPivacaine (PF) (MARCAINE) injection IMG once as needed, other - see admin instructions/comments, Starting on Sun11/18/24 at 1018, Intra-op Given 11/18/2024 10:18 AM EDT 4 mLs iopamidoL (ISOVUE-M) 300 mg iodine /mL (61 %) intrathecal injection IMG once as needed, Starting on Sun11/18/24 at 1018, Intra-op Given 11/18/2024 10:18 AM EDT 5 mLs lidocaine (PF) injection 10 mg/mL (1%) IMG once as needed, intradermal, Starting on Sun11/18/24 at 1017, Intra-op Given 11/18/2024 10:17 AM EDT 12 mLs sodium bicarbonate 1 mEq/mL (8.4 %) injection vial IMG once as needed, Starting on Sun11/18/24 at 1017, Intra-op Given 11/18/2024 10:17 AM EDT 2 mEq triamcinolone acetonide suspension (KENALOG-40) 40 mg/mL injection IMG once as needed, Starting on Sun11/18/24 at 1018, Intra-op Given 11/18/2024 10:18 AM EDT 80 mg documented in this encounter Care Teams Rn Case Manager Relationship Specialty Start Date End Date Franco Spaulding DPM [address] [place] [address] PCP - General Podiatry 09/03/23 documented as of this encounter
--- OUTSIDE RECORDS SUMMARY | 2025-01-09 12:51 | XMS_ITS | Clinical Summary ---
Author Organization [employer] ([place], [place], [place], [place]) Address [address] [place] [address] Care Team Providers Care Can Solderer Name Role Phone Franco Spaulding DPPati Primary Care Provider Allergies Active Allergy Reactions Criticality Noted Date Comments Penicillin Other (See Comments) Low 11/07/2023 unknown Medications celecoxib (CeleBREX) 200 MG capsule Take 1 capsule (200 mg total) by mouth daily. 10/22/2023 Active cholecalciferol , vitamin D3, (Vitamin D3) 50 mcg (2,000 unit) Cap Take 1 capsule (2,000 Units total) by mouth daily. Active Cartia XT 120 mg 24 hr capsule Take 2 capsules (240 mg total) by mouth daily. 09/03/2023 Active estradioL (ESTRACE) 0.5 MG tablet Take 1 tablet (0.5 mg total) by mouth daily. 10/16/2023 Active flecainide (TAMBOCOR) 50 MG tablet Take 1 tablet (50 mg total) by mouth 2 (two) times daily. 10/16/2023 Active lisinopriL (PRINIVIL,ZESTR IL) 10 MG tablet Take 1 tablet (10 mg total) by mouth daily. 09/11/2023 Active pantoprazole (PROTONIX) 40 MG tablet Take 1 tablet (40 mg total) by mouth. 05/19/2023 Active simvastatin (ZOCOR) 40 MG tablet Take 1 tablet (40 mg total) by mouth. Active DULoxetine (CYMBALTA) 30 MG capsule Take 1 capsule (30 mg total) by mouth daily. Active traMADoL (ULTRAM) 50 mg tablet Take 1 tablet (50 mg total) by mouth every 6 (six) hours as needed. Active cyclobenzaprine (FLEXERIL) 10 MG tabletIndicatio ns:Radiculopath y of lumbar region Take 1 tablet (10 mg total) by mouth every night as needed for muscle spasms. 30 tablet 5 10/15/2024 10/16/19 Active gabapentin (NEURONTIN) 300 MG capsuleIndicati ons:Neuropathy Take 1 capsule (300 mg total) by mouth 3 (three) times daily. Max Daily Amount: 900 mg 90 capsule 5 10/15/2024 10/16/19 Active Active Problems Problem Noted Date Diagnosed Date Lumbar radiculopathy 11/07/2023 Neuropathy 11/07/2023 Encounters Date Type Department Care Team Description 11/18/2024 9:57 AM EDT - 11/18/2024 11:59 PM EDT Hospital Encounter [facility] Cardiac Catheterization Lab [address] [place] [address] Suzanna Curiel MD Sacroiliitis, not elsewhere classified (HCC) Discharge Disposition: Home or Self Care 11/18/2024 Travel 10/15/2024 1:15 PM EDT Office Visit [facility] Neurology - [place] [phone] Aida Lara APRN Radiculopathy of lumbar region; Neuropathy from Last 3 Months Family History Medical History Relation Name Comments Heart disease Father Hyperlipidemia Father Arthritis Mother Hyperlipidemia Mother Relation Name Status Comments Father Mother Social History Tobacco Use Types Packs/Day Years Used Date Smoking Tobacco: Never Smokeless Tobacco: Never Tobacco Cessation:Counseling Given: Not Answered Family and Community Support Answer Duane e Recorded Help with Day to Day Activities Not on file 09/05/2023 Feeling Lonely or Isolated Not on file 09/04 Educational Attainment Answer Date Raymon rded Speak language other than Latvian at home Not on file 09/05/2023 Want [...] PM CDT Sexual Orientation Not on file Last Filed Vital Signs Vital Sign Reading [...] Mass Index 36.8 11/18/2024 10:04 AM EDT Plan of Treatment Upcoming Encounters Date Type Department Care Team (Late st Contact Info) Description 04/21/2025 2:00 PM EST Office Visit [facility] Neurology - [facility] [address] [place] [address] [address] [place] [address] Aida Lara, SUPERVISOR COOK ROOM [address] [facility] [address] [place] [address] Health Maintenance Due Date Last Done Comments CT Colonography 1968 Colonoscopy 1968 Colorectal Cancer Screening 1968 FOBT/FIT 1968 Fit-DNA (Cologuard) 1968 Sigmoidoscopy 1968 Depression Screening (12+) 1980 HIV Screening 11/02/1983 Hepatitis C Screening 1986 DTAP/TDAP/TD VACCINES (1 - Tdap) 11/02/1987 Pap Smear 1989 Breast Cancer Screening 2008 Lipid Panel 2013 Pneumococcal 50+ years (1 of 1 - PCV) 2018 Shingles Vaccine (Zoster) (1 of 2) 2018 COVID-19 VACCINE (2023-2 5 season) 2024 03/10/2022, 11/04/2021, 03/23/2021, Additional history exists Influenza Vaccine (#1) 2025 Tobacco Cessation Counseling and Screening (12+) 10/15/2025 10/15/2024 Procedures Procedure Name Priority Date/Time Associated Diagnosis Comments CARDIAC CATH - INJECTIONS Routine 11/18/2024 10:25 AM EDT Sacroiliitis, not elsewhere classified (HCC) from Last 3 Months Results * CARDIAC CATH - INJECTIONS (11/18/2024 [...] CV CARDIAC CATH ORDERABLES Yesenia l Result from Last 3 Months Insurance [employer]PR[employer]/Gateway 3D [employer]IELD [employer] Care Teams Can Solderer Relationship Specialty Start Date End Date Franco Spaulding DPM [address] [place] [address] PCP - General Podiatry 09/03/23
--- OUTSIDE RECORDS SUMMARY | 2025-01-09 12:52 | XMS_ITS | Encounter Summary ---
Author Organization [place] [address] Care Team Providers Care Public Speaking Coach Name Role Phone Unavailable Primary Care Provider Unavailabl e Encounter Details Date Type Department Care Team (Late st Contact Info) Description 11/06/2019 Orders Only [facility] [address] [address] Gomez Alejandre MD [address] [place], [place] [id number] Social History Tobacco Use Types Packs/Day Years Used Date Smoking Tobacco: Never Smokeless Tobacco: Never Alcohol Use Standard Drinks/Week Comments Never 0 (1 standard drink = 0.6 oz pur e alcohol) AUDIT-C Answer Date Recorded Frequency of Alcohol Consumption Never 10/31/2019 Average Number of Drinks Not on file 020 Frequency of Binge Drinking Not on file 10/12 Comments Unknown Sex and Gender Information Value Date Recorded Sex Assigned at Not on file Legal Sex Female 2:36 PM EDT Gender Identity Not on file Sexual Orientation Not on file COVID-19 Exposure Response Date Recorded In the last month, have you been in contact with someone who was confirmed or suspected to have Coronavirus / COVID-19? No / Unsure 11/06/2019 9:03 AM EDT documented as of this encounter Functional Status documented as of this encounter Plan of Treatment Upcoming Encounters Date Type Department Care Team (Late st Contact Info) Description 04/22/2025 10:30 AM EST Office Visit [facility] [address] [facility] [address] [place] [address] Gomez Alejandre MD [address] [place] [address] documented as of this encounter Procedures Procedure Name Priority Date/Time Associated Diagnosis Comments EP LAB RECORDINGS Routine 11/06/2019 1:28 PM EDT documented in this encounter Results * EP LAB RECORDINGS (11/06/2019 1:28 PM EDT) 11/06/2019 1:28 PM EDT us Gomez Alejandre MD CARDIAC CATH ORDERABLES Final Result [facility] [address] [place] [address] documented in this encounter Visit Diagnoses Not on filedocumented in this encounter
--- OUTSIDE RECORDS SUMMARY | 2025-01-09 12:52 | XMS_ITS | Encounter Summary ---
Author Organization [employer] ([place], [place], [place], [place]) Address [address] [place] [address] Care Team Providers Care Advertising Sales Representative Name Role Phone Franco Spaulding DPPati Primary Care Provider [phone] Encounter Details Date Type Department Care Team (Latest Contact Info) Description 11/18/2024 Travel Social History Tobacco Use Types Packs/Day Years Used Date Smoking Tobacco: Never Smokeless Tobacco: Never Family and Community Support Answer Duane e Recorded Help with Day to Day Activities Not on file 09/05/2023 Feeling Lonely or Isolated Not on file 09/04 Educational Attainment Answer Date Raymon rded Speak language other than Dominican at home Not on file 09/05/2023 Want [...] on file documented as of this encounter Plan of Treatment Upcoming Encounters Date Type Department Care Team ( Contact Info) Description 04/21/2025 2:00 PM EST Office Visit [facility] [place]rology [place] [address] [facility] [address] [place] [address] Aida Lara, CHANGE CONSULTANT [address] [facility] [address] [place] [address] documented as of this encounter Visit Diagnoses Not on filedocumented in this encounter Care Teams Advertising Sales Representative Relationship Specialty Start Date End Date Franco Spaulding DPM [address] [facility] [address] [place] [address] PCP - General Podiatry 09/03/23 documented as of this encounter
--- OUTSIDE RECORDS SUMMARY | 2025-01-09 12:52 | XMS_ITS | Referral Summary ---
Author Organization [employer] ([place], [place], [place], [place]) Address [address] [place] [address] Care Team Providers Care User Interface Designer Name Role Phone Franco Spaulding DPPati Primary Care Provider [phone] Encounters Date Type Department Care Team Description 11/18/2024 Travel 11/18/2024 9:57 AM EDT - 11/18/2024 11:59 PM EDT Hospital Encounter [facility] Cardiac Catheterization Lab [address] [place] [address] Suzanna Curiel MD Sacroiliitis, not elsewhere classified (HCC) Discharge Disposition: Home or Self Care 10/15/2024 1:15 PM EDT Office Visit [facility] Neurology - [address] [place] [address] Aida Lara APRN Radiculopathy of lumbar region; Neuropathy from Last 3 Months Allergies Active Allergy Reactions Criticality Noted Date [...] Diagnosed Date Lumbar radiculopathy 11/07/2023 Neuropathy 11/07/2023 Social History Tobacco Use Types Packs/Day Years Used Date Smoking Tobacco: Never Smokeless Tobacco: Never Tobacco Cessation:Counseling Given: Not Answered Family and Community Support Answer Duane e Recorded Help with Day to Day Activities Not on file 09/05/2023 Feeling Lonely or Isolated Not on file 09/04 Educational Attainment Answer Date Raymon rded Speak language other than Canadian at home Not on file 09/05/2023 Want [...] Description 04/21/2025 2:00 PM EST Office Visit [facility] Neurology - [address] [address] Aida Lara, MITCHEL [address] [facility] [address] [place] [id number] Procedures Procedure Name Priority Date/Time Associated Diagnosis [...] Estimated Blood loss : less than 1ml Suzanna Curiel MD CV CARDIAC CATH ORDERABLES Yesenia dave Result from Last 3 Months Insurance BLUE CROSS/BLUE SHIELD BLUE CROSS/BLUE [employer]IELD Care Teams User Interface Designer Relationship Specialty Start Date End Date Franco Spaulding DPM [address] [place] [address] PCP - General Podiatry 09/03/23
--- OUTSIDE RECORDS SUMMARY | 2025-01-09 12:52 | XMS_ITS | Encounter Summary ---
[facility] Organization [facility] Address [address] [place] [phone] Care Team Providers Care Salon Supervisor Name Role Phone Bob Vargas MD Primary Care Provider + Encounter Details Date Type Department Care Team (Late Contact Info) Description 10/30/2024 Results Follow-Up [facility] RHEUMATOLOGY [address] [address] Seth Gonzalez APRN [address] [address] Social History Tobacco Use Types Packs/Day Years Used Date Smoking Tobacco: Never Passive Smoke Exposure: Past Smokeless Tobacco: Never Alcohol Use Standard Drinks/Week Comments Never 0 (1 standard drink = 0.6 oz pur e alcohol) PHQ-2 Answer Date Recorded Patient Health Questionnaire-2 Score 0 09/23/2024 Comments Unknown Sex and Gender Information Value Date Recorded Sex Assigned at Female 09/16/2024 7:37 PM EDT Legal Sex Female 10:59 AM EDT Gender Identity Not on file Sexual Orientation Not on file documented as of this encounter Plan of Treatment Upcoming Encounters Date Type Department Care Team (Late Contact Info) Description 03/10/2025 3:00 PM EDT Office Visit [facility] FAMILY MEDICINE [address] [place] [address] Bob Vargas MD [address] [facility] [place] [address] 04/30/2025 8:30 AM EST Office Visit [facility] RHEUMATOLOGY [address] [address] Chino Oliveira APRN [address] [id number] documented as of this encounter Visit Diagnoses Not on filedocumented in this encounter Care Teams Salon Supervisor Relationship Specialty Start Date End Date Bob Vargas MD [address] [place] [address] PCP - General Family Medicine 09/23/24 documented as of this encounter
--- OUTSIDE RECORDS SUMMARY | 2025-01-09 12:52 | XMS_ITS | Clinical Summary ---
Author Organization [facility] Arrhythmia [facility] Address [address] [facility] [address] [place] [address] Phone Care Team Providers Care Distance Learning Administrator Name Role Phone Unavailable Primary Care Provider Unavailabl e Allergies Active Allergy Reactions Criticality Noted Date Comments Penicillins Other (See Comments) 08/15/2019 unknown Medications allopurinoL (ZYLOPRIM) 300 mg Oral Tablet Take 300 mg by mouth daily. Active pantoprazole (PROTONIX) 40 mg Oral Tablet, Delayed Release (E.C.) Take 40 mg by mouth daily. Active PARoxetine (PAXIL) 10 mg Oral Tablet Take 10 mg by mouth daily. Active simvastatin (ZOCOR) 40 mg Oral Tablet Take 40 mg by mouth daily. Active multivitamin Oral Capsule Take 1 Cap by mouth daily. Active CELEBREX 200 mg Oral Capsule Take 200 mg by mouth daily. 07/18/2022 Active lisinopriL (PRINIVIL;ZESTR IL) 10 mg Oral Tablet Take 10 mg by mouth daily. 04/26/2023 Active CLARITIN 10 mg Oral Tablet Take 10 mg by mouth daily. 07/22/2022 Active Cholecalciferol , Vitamin D3, 50 mcg (2,000 unit) Oral Tablet Take 50 mcg by mouth daily. Active estradioL (ESTRACE) 0.5 mg Oral Tablet Take 0.5 mg by mouth daily. 01/22/2024 Active gabapentin (NEURONTIN) 300 mg Oral Capsule Take 300 mg by mouth 2 times daily. Active meclizine (ANTIVERT) 25 mg Oral Tablet Take 25 mg by mouth 3 times daily as needed. 04/16/2024 Active dilTIAZem (CARTIA XT) 120 mg Oral Capsule, Sust. Release 24 hr Take 2 Capsules by mouth daily. 180 Capsule 3 04/22/2024 Active flecainide (TAMBOCOR) 50 mg Oral Tablet Take 1 Tablet by mouth 2 times daily. 180 Tablet 3 04/22/2024 Active Active Problems Problem Noted Date Diagnosed Date Palpitations 08/15/2019 NSVT (nonsustained ventricular tachycardia) PVC's (premature ventricular contractions) SVT (supraventricular tachycardia) Sinus bradycardia Surgical History Surgery Date Site/Laterality Comments TONSILLECTOMY HYSTERECTOMY CHOLECYSTECTOMY FOOT SURGERY STOMACH SURGERY SHOULDER SURGERY ABLATION OF DYSRHYTHMIC FOCUS 11/06/2019 EPS, 3D Mapping, SVT Ablation-Dr. Alejandre Medical History Medical History Date Comments GERD (gastroesophageal reflux disease) Hyperlipidemia Hypertension Palpitations NSVT (nonsustained ventricular tachycardia) (HCC ) Bradycardia PVC's (premature ventricular contractions) SVT (supraventricular tachycardia) Sinus bradycardia Family History Medical History Relation Name Comments Coronary Art Dis Father [id number] Diabetes Father Heart Disease Father Relation Name Status Comments Father Social History Tobacco Use Types Packs/Day Years Used Date Smoking Tobacco: Never Smokeless Tobacco: Never Tobacco Cessation:Counseling Given: Not Answered Alcohol Use Standard Drinks/Week Comments Never 0 [...] on file Sexual Orientation Not on file Obstetrics History Last Filed Vital Signs Vital Sign Reading Time Taken Comments Blood Pressure 112/82 04/22/2024 10:32 AM EST Pulse 58 04/22/2024 10:32 AM EST Temperature - - Respiratory Rate 16 11/06/2019 4:00 PM EDT Oxygen Saturation 98% 04/22/2024 10:32 AM EST Inhaled Oxygen Concentration - - Weight 99.8 kg (220 lb) 04/22/2024 10:32 AM EST Height 167.6 cm (5' 6 ) 11/06/2019 9:30 AM EDT Body Mass Index 35.51 11/06/2019 9:30 AM EDT Plan of Treatment Upcoming Encounters Date Type Department Care Team (Late st Contact Info) Description 04/22/2025 10:30 AM EST Office Visit [facility] [address] [facility] [address] [place] [address] Gomez Alejandre MD [address] [facility] [place] [address] Health Maintenance Due Date Last Done Comments Annual Wellness Exam 11/02/1971 DTaP/TDaP/Td (1 - Tdap) 11/02/1987 Cervical Cancer Screening 1989 Pap Smear 1989 HPV/Pap Cotest 1998 Breast Cancer Screening 2008 Colonoscopy 2013 FIT 2013 Sigmoidoscopy 2013 Virtual Colonography 2013 Pneumococcal Vaccine 50+ (1 of 1 - PCV) 2018 Zoster (1 of 2) 2018 Hepatitis B Vaccine (2 of 3 - 19+ 3-dose series) 07/18/2023 06/20/2023 COVID-19 Vaccine (2023- season) 2024 03/10/2022, 11/04/2021, 03/23/2021, Additional history exists Influenza Vaccine (#1) 2025 02/15/2021 Cologuard 06/26/2026 06/26/2023, 04/10/2020 Colon Cancer Screening 06/26/2026 Meningococcal B Vaccine Aged Out No l onger eligible based on patient's age to complete this topic Insurance [employer] OPEN ACCESS PLUS
--- OUTSIDE RECORDS SUMMARY | 2025-01-09 12:52 | XMS_ITS | Encounter Summary ---
Author Organization [facility] Address [address] [place] [phone] Care Team Providers Care Supervisor Pumping Station Name Role Phone Bob Vargas MD Primary Care Provider + Reason for Visit * Reason Onset Date Comments Med Refill 12/05/2024 Encounter Details Date Type Department Care Team (Late st Contact Info) Description 12/05/2024 Refill [facility] FAMILY MEDICINE [address] [place] [address] Bob Vargas MD [address] [place] [address] Class 2 severe obesity due to excess calories with serious comorbidity and body mass index (BMI) of 36.0 to 36.9 in adult Social History Tobacco Use Types Packs/Day Years [...] on file documented as of this encounter Miscellaneous Notes * Telephone Encounter - Amy Reyes MA - 12/08/2024 5:25 PM EDT Pt is aware you are out this week and can wait til next week to move up. * Telephone Encounter - Vita Ibarra RegSched Rep - 12/05/2024 11:38 AM EDT Caller: Pratibha Bonilla Relationship: Self Best call back number: Telephone Information: Requested Prescriptions: Requested Prescriptions Pending Prescriptions Disp Refills Semaglutide-Weight Management (Wegovy) 0.5 MG/0.5ML solution auto-injector 2 mL 0 Sig: Inject 0.5 mL under the skin into the appropriate area as directed 1 (One) Time Per Week. Pharmacy where request should be sent: [facility] [place] [address] [address] [facility] [address] - [phone] PH - [phone] FX Last office visit with prescribing clinician: 11/07/2024 Last telemedicine visit with prescribing clinician: Visit date not found Next office visit with prescribing clinician: 03/10/2025 Additional details provided by patient: PATIENT STATES SHE WOULD LIKE TO INCREASE HER DOSE TO THE NEXT STEP UP. Does the patient have less than a 3 day supply: [] Yes [x] No Ed Miranda 12/05/24 11:38 EDT documented in this encounter Plan of Treatment Upcoming Encounters Date Type Department Care Team (Late st Contact Info) Description 03/10/2025 3:00 PM EDT Office Visit [facility] FAMILY MEDICINE [address] [facility] [place] [address] Bob Vargas MD [address] [facility] [place] [address] 04/30/2025 8:30 AM EST Office Visit [facility] RHEUMATOLOGY [address] [address] Chino Oliveira APRN [address] [address] documented as of this encounter Visit Diagnoses Diagnosis Class 2 severe obesity due to excess calories with serious comorbidity and body mass index (BMI) of 36.0 to 36.9 in adult documented in this encounter Care Teams Supervisor Pumping Station Relationship Specialty Start Date End Date Bob Vargas MD [address] [facility] [place] [address] PCP - General Family Medicine 09/23/24 documented as of this encounter
--- OUTSIDE RECORDS SUMMARY | 2025-01-09 12:52 | XMS_ITS | Encounter Summary ---
Author Organization [facility] Address [address] [place] [phone] Care Team Providers Care Pipeline Superintendent Division Name Role Phone Bob Vargas MD Primary Care Provider + Encounter Details Date Type Department Care Team (Late Contact Info) Description 10/30/2024 Results Follow-Up [facility] RHEUMATOLOGY [address] [address] Seth Gonzalez APRN [address] [address] Social History Tobacco Use Types Packs/Day Years [...] Description 03/10/2025 3:00 PM EDT Office Visit [facility] FAMILY MEDICINE [address] [place] [address] Bob Vargas MD [address] [facility] [place] [address] 04/30/2025 8:30 AM EST Office Visit [facility] RHEUMATOLOGY [address] [address] Chino Oliveira APRN [address] [id number] documented as of this encounter Visit Diagnoses Not on filedocumented in this encounter Care Teams Pipeline Superintendent Division Relationship Specialty Start Date End Date Bob Vargas MD [address] [place] [address] PCP - General Family Medicine 09/23/24 documented as of this encounter
--- OUTSIDE RECORDS SUMMARY | 2025-01-09 12:52 | XMS_ITS | Clinical Summary ---
Author Organization [facility] Address [address] [place] [address] Care Team Providers Care Electrician Apprentice Name Role Phone Bob Vargas MD Primary Care Provider + Allergies Active Allergy Reactions Criticality Noted Date Comments Naltrexone-Bupropion Hcl Er GI Intolerance 09/23/2024 Severe constipation Penicillins Provider Review Needed 03/28/2024 Phentermine Hcl Palpitations Medium 10/05/2024 Patient experienced palpitations with HR>100 with phentermine 15 mg dose. Has history of SVT Medications simvastatin (Zocor) 40 MG tablet Take 1 tablet by mouth Every Night. Active Cholecalciferol (Vitamin D3) 50 MCG (1999 UT) tablet Take 1 tablet by mouth Daily. Active pantoprazole (PROTONIX) 40 MG EC tablet Take 1 tablet by mouth Daily. Active lisinopril (PRINIVIL,ZESTR IL) 10 MG tablet Take 1 tablet by mouth Daily. Active flecainide (TAMBOCOR) 50 MG tablet Take 1 tablet by mouth Every 12 (Twelve) Hours. Active allopurinol (ZYLOPRIM) 300 MG tablet Take 1 tablet by mouth Daily. Active estradiol (ESTRACE) 0.5 MG tablet Take 1 tablet by mouth Daily. Active celecoxib (CeleBREX) 200 MG capsule Take 1 capsule by mouth Daily. 30 capsule 1 09/05/19 25 Active gabapentin (NEURONTIN) 300 MG capsule Take 1 capsule by mouth 3 (Three) Times a Day. 04/30/20 24 Active DULoxetine (CYMBALTA) 30 MG capsule Take 1 capsule by mouth Daily. Active fluticasone (FLONASE) 50 MCG/ACT nasal spray INSTILL ONE SPRAY IN EACH NOSTRIL TWICE DAILY Active cyclobenzaprine (FLEXERIL) 10 MG tablet TAKE ONE TABLET BY MOUTH EVERY NIGHT NEEDED FOR MUSCLE SPASMS MAY CAUSE DROWSINESS 06/17/19 25 Active dilTIAZem CD (CARDIZEM CD) 120 MG 24 hr capsule Take 2 capsules by mouth Daily. 09/20/19 25 Active meclizine (ANTIVERT) 25 MG tablet Take 1 tablet by mouth 3 (Three) Times a Day As Needed. 07/26/19 25 Active ondansetron (ZOFRAN) 4 MG tablet TAKE ONE TABLET BY MOUTH THREE TIMES DAILY NEEDED FOR NAUSEA AND VOMITING 06/24/19 25 Active traMADol (ULTRAM) 50 MG tablet 10/23/19 25 Active Semaglutide-Toby ght Management (Wegovy) 1 MG/0.5ML solution auto-injectorIn dications:Class 2 severe obesity due to excess calories with serious comorbidity and body mass index (BMI) of 36.0 to 36.9 in adult Inject 0.5 mL under the skin into the appropriate area as directed 1 (One) Time Per Week. 2 mL 12/16/19 25 Active Semaglutide-Toby ght Management (Wegovy) 0.5 MG/0.5ML solution auto-injectorIn dications:Class 2 severe obesity due to excess calories with serious comorbidity and body mass index (BMI) of 36.0 to 36.9 in adult Inject 0.5 mL under the skin into the appropriate area as directed 1 (One) Time Per Week. 2 mL 11/08/19 25 025 Discontinued Active Problems Problem Noted Date Diagnosed Date SVT (supraventricular tachycardia) 09/23/2024 Other specified anxiety disorders 09/23/2024 Lumbar spondylosis 09/23/2024 Class 2 obesity due to exces s calories with body mass index (BMI) of 36.0 to 36.9 in adult 09/23/2024 Assessment & Plan (11/07/2024 3:12 PM EDT): Condition is stable. Currently weight is unchanged during initiation of GLP-1 agonist. Increase Wegovy to 0.5 mg with plan to uptitrate every 4 weeks to at least 1.7 mg and reassess in 12 weeks. Continue Darci-based exercise program. Continue low carbohydrate diet. Assessment & Plan (09/23/2024 4:44 PM EDT): Patient's (Body mass index is 36.64 kg/m .) indicates that they are morbidly/severely obese (BMI > 40 or > 35 with obesity - related health condition) with health conditions that include hypertension, dyslipidemias, and GERD . Weight is unchanged with Contrave and low-dose Qsymia . BMI is above average; BMI management plan is completed. We discussed low calorie, low carb based diet program, portion control, increasing exercise, and pharmacologic options including Qsymia 7.5/46 . Qsymia will be increased and patient will be reassessed in 6 weeks. S/P gastric sleeve procedure 09/23/2024 Inflammatory polyarthropathy 03/28/2024 Encounters Date Type Department Care Team Description 12/05/2024 Refill [facility] [address] [place] [address] Bob Vargas MD Class 2 severe obesity due to excess calories with serious comorbidity and body mass index (BMI) of 36.0 to 36.9 in adult 11/07/2024 3:00 PM EDT Office Visit [facility] [address] [place] [address] Bob Vargas MD Class 2 severe obesity due to excess calories with serious comorbidity and body mass index (BMI) of 36.0 to 36.9 in adult (Primary Dx) 11/07/2024 Travel 10/30/2024 Results Follow-Up [facility] [address] [place] [phone] Seth Gonzalez, COLLAR POINTER 10/30/2024 Results Follow-Up [facility] [address] [address] Seth Gonzalez, COLLAR POINTER 10/29/2024 9:00 AM EDT Office Visit [facility] [address] [place] [phone] Chino Oliveira APRN Inflammatory arthritis (Primary Dx); Encounter for long-term (current) use of high-risk medication; Pain in eye, unspecified laterality; Positive JESSICA (antinuclear antibody); Dry mouth; Achilles tendinitis of left lower extremity 10/29/2024 Telephone [facility] [address] [address] Chino Oliveira APRN 10/29/2024 Travel 10/10/2024 Telephone [facility] [address] [place] [address] Bob Vargas MD Advice Only from Last 3 Months Family History Medical History Relation Name Comments Coronary artery disease Father Father Diabetes Father Father Gallbladder disease Father Father HEART BY PASS Father Father Hypertension Father Father Arthritis Mother Mother Gout Mother Mother Hypertension Mother Mother Relation Name Status Comments Father Father Mother Mother Social History Tobacco Use Types Packs/Day Years Used Date Smoking Tobacco: Never Passive Smoke Exposure: Past Smokeless Tobacco: Never Tobacco Cessation:Counseling Given: Not [...] on file Sexual Orientation Not on file Last Filed Vital Signs Vital Sign Reading Time Taken Comments Blood Pressure 115/80 11/07/2024 2:54 PM EDT Pulse 77 11/07/2024 2:54 PM EDT Temperature 36.4 C (97.5 F) 11/07/2024 2:54 PM EDT Respiratory Rate 20 11/07/2024 2:54 PM EDT Oxygen Saturation 98% 11/07/2024 2:54 PM EDT Inhaled Oxygen Concentration - - Weight 105 kg (231 lb) 11/07/2024 2:54 PM EDT Height 167.6 cm (5' 6 ) 11/07/2024 2:54 PM EDT Body Mass Index 37.28 11/07/2024 2:54 PM EDT Plan of Treatment Upcoming Encounters Date Type Department Care Team (Late st Contact Info) Description 03/10/2025 3:00 PM EDT Office Visit [facility] [address] [place] [address] Bob Vargas MD [address] [place] [address] 04/30/2025 8:30 AM EST Office Visit [facility] [address] [address] Chino Oliveira APRN [address] [address] Health Maintenance Due Date Last Done Comments Annual Gynecologic Pelvic an d Breast Exam 1968 LIPID PANEL 1968 TDAP/TD VACCINES (1 - Tdap) 11/02/1987 MAMMOGRAM 2008 COLON CANCER SCREENING 5 YEA R SIGMOIDOSCOPY [address] COLONOGRAPHY 2013 FECAL OCCULT BLOOD TEST 2013 FIT Testing (1 year) 2013 Pneumococcal Vaccine 50+ (1 of 1 - PCV) 2018 ZOSTER VACCINE (1 of 2) 2018 COVID-19 Vaccine (6 - 2023-2 5 season) 2024 03/10/2022, 11/04/2021, 03/23/2021, Additional history exists ANNUAL PHYSICAL 03/28/2024 HEPATITIS C SCREENING 03/28/2024 INFLUENZA VACCINE 02/11/2025 02/15/2021 COLOGUARD 06/26/2026 06/26/2023, 04/10/2020 COLONOSCOPY 02/22/2030 02/23/2020 COLORECTAL CANCER SCREENING 02/22/2030 Procedures Procedure Name Priority Date/Time Associated Diagnosis Comments CBC AND DIFFERENTIAL Routine 10/29/2024 9:25 AM EDT Inflammatory arthritis SEDIMENTATION RATE Routine 10/29/2024 9: 25 AM EDT Inflammatory arthritis C-REACTIVE PROTEIN Routine 10/29/2024 9: 25 AM EDT Inflammatory arthritis COMPREHENSIVE METABOLIC PANEL Routine 10/29/2024 9:25 AM EDT Inflammatory arthritis SCANNED - LABS 10/16/2024 from Last 3 Months Results * Sedimentation Rate (10/29/2024 9:25 AM EDT) Pathologist [facility] Sed Rate 16 0 - 30 mm/hr [facility] Blood 10/29/2024 9:25 AM EDT 10/29/2024 Narrative [facility] ([facility]) - 10/30/2024 1:06 AM EDT Performed at: [address] [place] [address] [id number] Data Security Consultant: Cristóbal Strange MD, Phone: [phone] Patient Fasting: N Chino Oliveira APRN LAB BLOOD ORDERABLES F inal Result [facility] (AMBULATORY) [address] [id number], [facility] [address] [place] [address], * CBC & Differential (10/29/2024 9:25 AM EDT) Pathologist [facility] WBC 6.43 3.40 - 10.80 10*3/mm3 [facility] RBC 4.74 3.77 - 5.28 10*6/mm3 [facility] Hemoglobin 14.2 12.0 - 15.9 g/dL [facility] Hematocrit 44.9 34.0 - 46.6 % [facility] MCV 94.7 79.0 - 97.0 fL [facility] MCH 30.0 26.6 - 33.0 pg [facility] MCHC 31.6 31.5 - 35.7 g/dL [facility] RDW 13.4 12.3 - 15.4 % [facility] Platelets 348 140 - 450 10*3/mm3 [facility] Neutrophil Rel % 62.6 42.7 - 76.0 % [facility] Lymphocyte Rel % 26.6 19.6 - 45.3 % [facility] Monocyte Rel % 7.5 5.0 - 12.0 % [facility] Eosinophil Rel % 2.2 0.3 - 6.2 % [facility] Basophil Rel % 0.8 0.0 - 1.5 % [facility] Neutrophils Absolute 4.03 1.70 - 7.00 10*3/mm3 [facility] Lymphocytes Absolute 1.71 0.70 - 3.10 10*3/mm3 [facility] Monocytes Absolute 0.48 0.10 - 0.90 10*3/mm3 [facility] Eosinophils Absolute 0.14 0.00 - 0.40 10*3/mm3 [facility] Basophils Absolute 0.05 0.00 - 0.20 10*3/mm3 [facility] Immature Granulocyte Rel % 0.3 0.0 - 0.5 % [facility] Immature Grans Absolute 0.02 0.00 - 0.05 10*3/mm3 [facility] nRBC 0.0 0.0 - 0.2 /100 WBC [facility] Blood 10/29/2024 9:25 AM EDT 10/29/2024 Narrative [facility] ([facility]) - 10/30/2024 1:06 AM EDT Performed at: [address] [place] [address] [id number] Data Security Consultant: Cristóbal Strange MD, Phone: [phone] Patient Fasting: N Chino Oliveira APRN LAB BLOOD ORDERABLES F inal Result [facility] ([facility]) [address] [place] [address], [facility] [address] [place] [address], * (ABNORMAL) C-reactive Protein (10/29/2024 9:25 AM EDT) [facility] C-Reactive Protein 0.70(H) 0.00 - 0.50 mg/dL [facility] Blood 10/29/2024 9:25 AM EDT 10/29/2024 Narrative [facility] (AMBULATORY) - 10/30/2024 1:06 AM EDT Performed at: [address] [place] [address] [place] [id number] Data Security Consultant: Cristóbal Strange MD, Phone: [phone] Patient Fasting: N us Chino Oliveira APRN LAB BLOOD ORDERABLES F inal Result [facility] (AMBULATORY) [address] [place] [address], [facility] [address] [place] [address], * (ABNORMAL) Comprehensive Metabolic Panel (10/29/2024 9:25 AM EDT) [facility] Glucose 75 65 - 99 mg/dL [facility] BUN 17.0 6.0 - 20.0 mg/dL [facility] Creatinine 1.15(H) 0.57 - 1.00 mg/dL [facility] EGFR Result 56.4(L) >60.0 mL/min/1.7 3 [facility] Comment: GFR Categories in Chronic Kidney Disease (CKD) GFR Category GFR (mL/min/1.73) Interpretation G1 90 or greater Normal or high (1) G2 60-89 Mild decrease (1) G3a 45-59 Mild to moderate decrease G3b 30-44 Moderate to severe decrease G4 15-29 Severe decrease G5 14 or less Kidney failure (1)In the absence of evidence of kidney disease, neither GFR category G1 or G2 fulfill the criteria for CKD. eGFR calculation 2020 CKD-EPI creatinine equation, which does not include race as a factor BUN/Creatinine Ratio 14.8 7.0 - 25.0 [facility] Sodium 141 136 - 145 mmol/L [facility] Potassium 4.6 3.5 - 5.2 mmol/L [facility] Chloride 102 98 - 107 mmol/L [facility] Total CO2 26.1 22.0 - 29.0 mmol/L [facility] Calcium 10.0 8.6 - 10.5 mg/dL [facility] Total Protein 7.0 6.0 - 8.5 g/dL [facility] Albumin 4.2 3.5 - 5.2 g/dL [facility] Globulin 2.8 gm/dL [facility] A/G Ratio 1.5 g/dL [facility] Total Bilirubin <0.2 0.0 - 1.2 mg/dL [facility] Alkaline Phosphatase 103 39 - 117 U/L [facility] AST (SGOT) 24 1 - 32 U/L [facility] ALT (SGPT) 21 1 - 33 U/L [facility] Blood 10/29/2024 9:25 AM EDT 10/29/2024 Narrative [facility] ([facility]) - 10/30/2024 1:06 AM EDT Performed at: [address] [place] [address] [id number] Data Security Consultant: Cristóbal Strange MD, Phone: [phone] Patient Fasting: N Chino Oliveira APRN LAB BLOOD ORDERABLES F inal Result [facility] (AMBULATORY) [address] [id number], [place] [phone] [facility] [address] [place] [address], [place] [phone] * LABS SCANNED (10/16/2024) Bob Vargas MD LAB BLOOD ORDERABLES Fin al Result from Last [address] [facility] PPO Member Subscriber Plan / Payer (Ef fective 2024-Present) Name:Pratibha Bonilla Relation to Subscriber:Spouse Name:CATHERINE BONILLA Date of :1962 (Home) Address: [address] [place], [place] [address], [place] [address] Payer ID:[id number] (NAIC) Type:Not on file Address: [address] [place] [id number] Care Teams Electrician Apprentice Relationship Specialty Start Date End Date Bob Vargas MD [address] [place] [address] PCP - General Family Medicine 09/23/24
--- OUTSIDE RECORDS SUMMARY | 2025-01-09 12:52 | XMS_ITS | Clinical Summary ---
Author Organization [facility] Address [address] [place] [address] Care Team Providers Care Electrical Intern Name Role Phone Thad Berry MD Primary Care Provider [phone] Allergies Active Allergy Reactions Criticality Noted Date Comments Penicillins Other - please docum ent in the comment field Low 08/15/2019 unknown Medications allopurinol (Zyloprim) 300 MG tablet Take 300 mg by mouth 1 (one) time each day. Active dilTIAZem (Cardizem) Active doxycycline (Vibramycin) 100 MG capsule TAKE ONE CAPSULE BY MOUTH TWICE DAILY -- FINISH ALL MEDICINE -- 07/22/2022 Active estradiol (Estrace) 0.5 MG tablet 06/11/2022 Active flecainide (Tambocor) 50 MG tablet Take 50 mg by mouth. 08/01/2022 Active lisinopril 10 MG tablet Take 10 mg by mouth 1 (one) time each day. 08/01/2022 Active pantoprazole (Protonix) 40 MG EC tablet Take 40 mg by mouth 1 (one) time each day. Active PARoxetine (Paxil) 10 MG tablet Take 10 mg by mouth 1 (one) time each day. Active simvastatin (Zocor) 40 MG tablet Take 40 mg by mouth every night. Active Active Problems Problem Noted Date Diagnosed Date NSVT (nonsustained ventricular tachycardia) 07/2022 Urethral prolapse 08/14/2022 Postmenopausal atrophic vaginitis 08/14/2022 Family History Medical History Relation Name Comments Heart disease Father Tato Acuna Arthritis Mother Mikaela Acuna Depression Mother Mikaela Acuna Hypertension Mother Mikaela Acuna Relation Name Status Comments Father Tato Acuna Mother Mikaela Acuna Social History Tobacco Use Types Packs/Day Years Used Date Smoking Tobacco: Never Smokeless Tobacco: Never Alcohol Use Standard Drinks/Week Comments Not Currently 0 (1 standard drink = 0.6 oz pur e alcohol) Comments Unknown Sex and Gender Information Value Date Recorded Sex Assigned at Not on file Legal Sex Female 7:38 PM EDT Gender Identity Not on file Sexual Orientation Not on file Last Filed Vital Signs Vital Sign Reading Time Taken Comments Blood Pressure 134/82 08/14/2022 9:20 AM EDT Pulse 70 08/14/2022 9:20 AM EDT Temperature - - Respiratory Rate - - Oxygen Saturation - - Inhaled Oxygen Concentration - - Weight 84 kg (185 lb 3 oz) 08/14/2022 9:20 AM ED T Height - - Body Mass Index - - Plan of Treatment Health Maintenance Due Date Last Done Comments [facility]-Depression Screening 1968 [facility]-Infant/Child/Adol SDOH Screenings 1968 [facility]- SDOH Screenings 1986 [facility]-Adult SDOH Screenings 1986 [facility]-DTaP,Tdap,and Td Vaccines (1 - Tdap) 11/02/1987 [facility]-Hepatitis B Vaccines (1 of 3 - 19+ 3-dose series) 11/02/1987 [facility]-Pap Smear 1989 [facility]-Cervical Cancer Screening 1998 [facility]-HPV/Cotest 1998 CT Colonography 2013 Colonoscopy 2013 FIT-DNA 2013 FIT 2013 FOBT 2013 Sigmoidoscopy 2013 [facility]-Colorectal Cancer Screening 2013 [facility]-Pneumococcal Vaccine: 50+ Years (1 of 1 - PCV) 2018 [facility]-Zoster Vaccines (1 of 2) 2018 [id number] Vaccine (2023- season) 2024 03/10/2022, 11/04/2021, 03/23/2021, Additional history exists [facility]-Influenza Vaccine (#1) 2025 02/15/2021 [facility]-Hepatitis A Vaccines Aged Out 03/11/2018 No longer eligible based on patient's age to complete this topic HPV Vaccines Aged Out No longer eligi ble based on patient's age to complete this topic [facility]-HIB Vaccines Aged Out No longer e ligible based on patient's age to complete this topic [facility]-IPV Vaccines Aged Out No longer e ligible based on patient's age to complete this topic [facility]-Rotavirus Vaccines Aged Out No lo nger eligible based on patient's age to complete this topic Insurance ANTHEM Care Teams Electrical Intern Relationship Specialty Start Date End Date Thad Berry MD [address] [facility] [address] [place] [address] PCP - General 05/16/22
--- OUTSIDE RECORDS SUMMARY | 2025-01-09 12:52 | XMS_ITS | Encounter Summary ---
Author Organization [facility] Address [address] [id number] Care Team Providers Care Overhead Worker Name Role Phone Bob Vargas MD Primary Care Provider + Encounter Details Date Type Department Care Team (Late Contact Info) Description 10/06/2024 Results Follow-Up [facility] [address] [address] Chino Oliveira APRN [address] [address] Social History Tobacco Use Types Packs/Day Years Used Date Smoking Tobacco: Never Alcohol Use Standard Drinks/Week Comments [...] Description 03/10/2025 3:00 PM EDT Office Visit [facility] [address] [facility] [place] [address] Bob Vargas MD [address] [place] [address] 04/30/2025 8:30 AM EST Office Visit [facility] [address] [address] Chino Oliveira APRN [address] [address] documented as of this encounter Visit Diagnoses Not on filedocumented in this encounter Care Teams Overhead Worker Relationship Specialty Start Date End Date Bob Vargas MD [address] [place] [address] PCP - General Family Medicine 09/23/24 documented as of this encounter
[2025-01-09 12:54] LABS: Coronavirus 19, PCR Not Detected (NotDetected); Influenza A, PCR Not Detected (NotDetected); Influenza B, PCR Not Detected (NotDetected)
== END 2025-01-09 23:59 | disposition home or self-care (01) ==
LOC: LAB 12:50
PROVIDERS: PCP Physician Assistant; Visit Provider Physician Assistant
DX: J06.9 Acute upper respiratory infection, unspecified (principal)
CPT/HCPCS: 87636